=== PATIENT | female | born 1990 | race Caucasian/White ===

== ENCOUNTER 2021-05-11 17:20 | Outpatient (CLI) | payer OTHER, SELFPAY ==
[2021-05-11 13:26] LABS: Amphetamine Urine VISTA NEGATIVE (<1000 ng/mL); Barbiturate Urine VISTA NEGATIVE (< 200 ng/mL); Benzodiazepine Urine VISTA NEGATIVE (< 200 ng/mL); Cocaine Urine VISTA NEGATIVE (< 300 ng/mL); Ecstacy Urine VISTA NEGATIVE (< 500 ng/mL); Methadone Urine VISTA NEGATIVE (< 300 ng/mL); PCP Urine VISTA NEGATIVE (< 25 ng/mL); THC Urine VISTA NEGATIVE (< 50 ng/mL); Vista UDS pH Range 5
[2021-05-12 22:06] LABS: Chlamydia By Nucleic Acid AMP Negative (Negative)
[2021-05-13 08:23] LABS: Gonococcus By Nucleic Acid AMP Negative (Negative)
== END 2021-05-11 23:59 | disposition short-term general hospital (02) ==
LOC: LABSPEC 05-12 08:43
PROVIDERS: Visit Provider Obstetrics & Gynecology
DX: Z34.90 Encounter for supervision of normal pregnancy, unspecified, unspecified trimester (principal)
CPT/HCPCS: 80307; 87086; 87491; 87591

== ENCOUNTER 2021-05-25 11:37 | Outpatient (CLI) | payer OTHER, SELFPAY ==
[2021-05-25 12:15] LABS: Absolute Lymphocyte Count 3.11 X10^3/uL (0.83-4.51); Absolute Neutrophil Count 8.1 X10^3/uL (2.0-7.7); Basophil# 0.04 X10^3/uL; Basophil% 0.3 % (0-1); Eosinophil# 0.23 X10^3/uL; Eosinophils% 1.9 % (0-5); Hematocrit 41.8 % (37-47); Hemoglobin 14.5 g/dL (12.0-15.0); Lymphocyte # 3.11 X10^3/ul (0.83-4.51); Lymphocyte % 25.1 % (19-41); Mean Corp Hgb Conc 34.7 g/dL (32-36); Mean Corpuscular Volume 86.4 fL (81-99); Monocyte# 0.81 X10^3/uL; Monocyte% 6.5 % (0-10); NRBC Flagged by Analyzer 0 % (0-5); Neutrophil # 8.11 X10^3/uL (2.7-7.7); Neutrophil % 65.6 % (47-70); Platelet Count 213 K/mm3 (150-450); RBC Distribution Width CV 12.1 % (11.6-14.6); RBC Distribution Width SD 38.5 fl (35.1-43.9); Red Blood Count 4.84 M/mm3 (4.2-5.4); White Blood Count 12.4 K/mm3 (4.4-11.0)
[2021-05-25 12:58] LABS: ALB/GLOB Ratio 0.9 RATIO (0.9-2.4); AST(SGOT) 16 U/L (15-37); Alanine Aminotransfer ALT/SGPT 19 U/L (13-56); Albumin, Serum 3.7 g/dL (3.2-5.0); Alkaline Phosphatase 58 U/L (45-117); Anion Gap 8 (5-15); BUN 9 mg/dL (7-18); BUN/Creat Ratio 16.6 RATIO (10-20); Calcium,Total 9.2 mg/dL (8.5-10.1); Chloride 107 mmol/L (98-107); Creatinine, Serum 0.54 mg/dL (0.55-1.02); EST Glomerular Filtration Rate 139 mL/min (>60); Est Glom Filt Rate - Afr Amer 168 mL/min (>60); Glucose 77 mg/dL (74-106); Potassium 3.9 mmol/L (3.5-5.1); Protein, Total 7.7 g/dL (6.4-8.2); Sodium Level 137 mmol/L (136-145)
== END 2021-05-25 23:59 | disposition short-term general hospital (02) ==
LOC: PAVLAB 11:43
PROVIDERS: Referring Provider Obstetrics & Gynecology; Visit Provider Obstetrics & Gynecology
DX: O02.0 Blighted ovum and nonhydatidiform mole (principal); Z3A.00 Weeks of gestation of pregnancy not specified
CPT/HCPCS: 36415; 80053; 84702; 85025; 86850; 86900; 86901

== ENCOUNTER 2021-05-26 10:26 | Day surgery (SDC) | payer OTHER, SELFPAY ==
[2021-05-26] VITALS (9 sets, daily range): BP systolic 102–111; BP diastolic 64–75; PULSE 70–83; RESP 16–18; TEMP 36.7–37.2; O2SAT 99–100; BMI 26.9
--- NOTE | 2021-05-26 10:29 | EKG12_ITS ---
Test Reason : PREOP Blood Pressure : / mmHG Vent. Rate : 079 BPM Atrial Rate : 079 BPM P-R Int : 142 ms QRS Dur : 088 ms QT Int : 392 ms P-R-T Axes : 073 034 046 degrees QTc Int : 449 ms Normal sinus rhythm Normal ECG No previous ECGs available Confirmed by GARLAND LUDWIG, JOSEF ([id number]), mapping editor JOSIANE ARGUELLO ([id number]) on 05/31/2021 10:05:45 A M Referred By: Rylie Gongora Confirmed By:DANIEL HAQUE MD
[2021-05-26] MEDS: Doxycycline 100 MG CAPSULE PO (11:03)
[2021-05-26 11:09] LABS: Hematocrit 37.5 % (37-47); Hemoglobin 13.5 g/dL (12.0-15.0); Mean Corpuscular Hgb 31.3 pg (27.0-32.0); Mean Corpuscular Volume 86.8 fL (81-99); Mean Platelet Vol. 11.4 fl (6.2-12.0); Platelet Count 178 K/mm3 (150-450); RBC Distribution Width CV 12.3 % (11.6-14.6); RBC Distribution Width SD 39.2 fl (35.1-43.9); Red Blood Count 4.32 M/mm3 (4.2-5.4); White Blood Count 9.9 K/mm3 (4.4-11.0)
--- NOTE | 2021-05-26 11:30 | HP.PCM_ITS ---
History and Physical Date of Admission: 05/26/21 :1990 Provider:Dr. Coco Parry MDAge/Sex: 31/F [facility] Vital Signs 05/25/21 10:31 Height 5 ft 4 in Weight: 158 lb BMI 27.1 BP 120/82 H Intake Visit Reasons: 10 WK OB f/u bleeding Chief Complaint: est ob, follow up bleeding Quality Control Inspector Required: No Is patient in pain?: No Allergies No Known Allergies Allergy (Unverified 05/25/21 12:28) Medications albuterol sulfate 90 mcg/actuation aerosol inhaler 2 puff INHALATION Q6H PRN 04/27/21 [History Confirmed 05/25/21] multivitamin no.47-iron fum 27 mg-folate no.1 1 mg-dha 300 mg capsule 1 cap PO DAILY 04/27/21 [History Confirmed 05/25/21] Last Menstral Period: 03/12/21 Zika: Zika virus screening: Negative : No PFSH PFSH Medical History (Updated 05/25/21 @ 15:[address] Coco Parry MD) Alcohol use Anxiety Asthma Back pain Chest pain Easy bruising Low iron Non-smoker Restless legs Surgical History (Updated 05/25/21 @ 12:34 by Ilene Francis) H/O section Hx of appendectomy Hx of breast augmentation Hx of oral surgery Family History Mother , age 57 Cancer lung Grandmother , age 45 Cancer Aunt , age 26 Cancer Grandfather Cancer skin Grandmother Breast cancer Grandfather Myocardial infarction Father Hypertension Aunt Breast cancer Aunt Cancer eye Aunt Cancer bone Social History household members: family housing: house number of children: 3 current occupation: [employer] pets and animals: Yes Smoking Status: Never smoker second hand exposure: No alcohol intake: current substance use type: does not use seatbelt use: always do you feel safe at home: Yes additional social history: - Candido (sales) Pregancy History 3 Elective abortions Hx Para 2 Spontaneous abortions Hx # Term Pregnancies 1 Ectopic pregnancies Hx # Pregnancies 1 Multiple births 1 # of living children 3 Past Pregnancies Del. Date Name GA/Weeks Outcome Route Bth Weight Infant Gen Labor Lgth Anesthesia Del Locatn Provider FOB 11/25/17 Primitivo 39 live - full term 7lbs 3oz Female 3 hours epidural [place] Candido 10/13/19 David 29 live - 3#2oz; 2#15oz Female 2 days general [facility] Delivery Date: 11/25/17 internal laceration repair; epistomy Azucena Marshall Delivery Date: 10/13/19 identical twins; PPROM; ? placental abruption; ? PP hemorrhage Azucena Marshall HPI 10 WK OB f/u bleeding Details: CELIA MAYS is a 31 year old who presents for routine OB visit. Preivous US had shown small subchorionic hematoma with viable iup. She denies any bleeding or cramping. She is having les nausea and fatigue now, feeling better. on ultrasound there is no FHT present and CRL measuring 1 week behind, and abnormal hydropic villi appearance of placental tissue suspicous for partial molar . OB Visit ROLANDO Calculator Estimated Delivery Date Method Current WG Current Estimate 12/17/21 LMP (Certain) 10w 4d Expected Delivery Route/Plan TOLAC Specific Issue/Plans Covid status: pos in past counseled regarding risk of covid in vs vaccination and declined vaccination Flu vaccine: Tdap vaccine: [] Rhogam: [] LARC form signed: [] Problem list reviewed and updated with the most current plan of care details and appropriate orders placed. Relevant counseling for the gestational age provided. Continue routine care and follow up unless otherwise noted in visit notes/problem list details Initial Weight: Not Recorded Date EGA Weight BP Urine Prot Glucose FHR FuHt Pres Dilation Effaced St Visit Note 05/11/21 8w 4d 156 lb 122/80 160 SM- CRL 8w1d cons with LMP 05/25/21 10w 4d 158 lb 120/82 Negative Negative ACOG First Trimester First Trimester: Desire for , Alcohol, Tobacco Cessation, Illicit/Recreational Drug/Substance Use, Intimate Partner Violence, Barriers to care, Unstable Housing, Communication Barriers, Environmental/Work Hazards, Anticipated Course of Care, Toxoplasmosis Precations, Use of Any medications, Sexual activity, Exercise, Dental Care, Sauna/Hot tub use, Seat Belt use, Childbirth classes/Hospital facilities, , Travel, Indications for Ultrasound and Screening for Aneuploidy Diagnostics Diagnostics Diagnostics: Blood Type A POSITIVE Antibody Screen NEGATIVE Hgb 14.5 g/dL (12.0-15.0) Hct 41.8 % (37-47) Chlamydia DNA (NINA) Negative (Negative) N.gonorrhoeae DNA (NINA) Negative (Negative) Details: HIV: Urine Culture: Sequential Screen: NIPT Screen: ROS Const Reports as per HPI and Denies fever(s) ENT Reports system reviewed and no additional complaints, except as documented Card Reports system reviewed and no additional complaints, except as documented Resp Reports system reviewed and no additional complaints, except as documented GI Reports as per HPI Reports as per HPI and Reports abnormal vaginal bleeding Musc Reports system reviewed and no additional complaints, except as documented Skin/Breast Reports system reviewed and no additional complaints, except as documented Neuro Yes system reviewed and no additional complaints, except as documented Endo Reports system reviewed and no additional complaints, except as documented Exam Const General: healthy appearing, comfortable and no acute distress HENMT Head: normal to inspection and normocephalic Neck Neck: no lymphadenopathy noted Thyroid: thyroid normal Chest Chest palpation & inspection: normal inspection of the chest Resp Effort & Inspection: normal respiratory effort Cardio Rate: regular rate Rhythm: regular rhythm GI Inspection: normal to inspection Palpation: soft and nontender External Female Exam: normal external appearance Speculum Exam - Vagina: normal appearance of the vagina Bimanual Exam- Vagina & Uterus: uterine shape normal and non-tender Skin General: no rashes or lesions noted Neuro General: no focal motor deficits Extrem General: normal to inspection and no pedal edema Psych Appearance: grossly normal Results POC Urinalysis 2 Dip (Clinic) Office Urine Glucose Negative Last Edit by Mellissa Montiel on 05/25/21 10:35 Office Urine Protein Negative Last Edit by Mellissa Montiel on 05/25/21 10:35 Coding Level of Care Code Off vis,est,level 4 Diagnoses Family history of cancer Z80.9 Z3A.10 Weeks of gestation: 10 weeks Supervision of high risk , antepartum O09.90 H/O emergency section Z98.891 PTSD (post-traumatic stress disorder) F43.10 H/O delivery, currently O09.899 Depression F32.A Asthma J45.909 Anxiety F41.9 Partial molar O08.89 Assessment and Plan Assessment and Plan (1) Family history of cancer: Status: Acute Comment: discussed empower testing. Plan - Dr. Coco Parry MD: recommend checking labs and proceeding with D and C. will need weekly hcgs until negative. (2) : Status: Acute Qualifiers: Weeks of gestation: 10 weeks Qualified Code(s): Z3A.10 - 10 weeks gestation of Comment: desires genetic (3) Supervision of high risk , antepartum: Status: Acute Comment: ROLANDO: 12/17/21 PC: Faisal Langford Kendell Spouse: Candido (4) H/O emergency section: Status: Acute Comment: twin delivery at 29 weeks d/t PPROM; PT WANTS TO (5) PTSD (post-traumatic stress disorder): Status: Acute Comment: from c/s- twin delivery; mom from Lung CA 8 months ago (6) H/O delivery, currently : Status: Acute Comment: PPROM at 29 weeks with twins; ? placental abruption (7) Depression: Status: Acute Comment: mom from lung cancer age 57 (8) Asthma: Status: Acute Comment: uses albuterol inhaler- needs to est care with PMW (9) Anxiety: Status: Acute (10) Partial molar : Status: Acute Comment: suspect by US. hydropic villi. hcg 150,000. measuring 9weeks no FHT. follow weekly hcgs until negative then repeat in 1 month prior to TTC. Plan - Dr. Coco Parry MD: Problem list updated and treatment plans were reviewed with the patient and relevant educational handouts given. See problem list details for specific plan information. UPDATE- I have seen the patient and performed any clinically relevant updates to the history and physical exam. Rylie Gongora DO
--- NOTE | 2021-05-26 11:32 | PCM.DC ---
Discharge Instructions Diet Discharge Diet: No restrictions Activity Discharge Activity: Return to Normal Activity, May Shower and May Take a Tub Bath (after 1 week) May resume sexual activity in: 4 weeks Weight Bearing Status: Weight bearing as tolerated Lifting Restrictions: none Dressing / Incision Call your doctor if you observe: Fever of 101 or Higher, Using more than 1 pad per hour, Shortness of breath and Uncontrolled pain Follow Up Care Please Follow Up With: Rylie Gongora DO When: Call [phone] to schedule appointment. Test Results: Test results from this visit will be discussed in further detail at your follow-up appointment, if applicable. Discharge Plan Admission Primary Reason for Your Visit: dilation and curettage Attending Provider: Rylie Gongora Primary Care Provider: Care Physician,Merlyn Primary Discharge Orders/Prescriptions Prescriptions: New oxycodone-acetaminophen [Percocet] 5-325 mg tablet 1 tab PO Q4H PRN (Reason: pain) 3 Days Qty: 18 RF: 0 ibuprofen 800 mg tablet 800 mg PO Q8H PRN (Reason: pain) 7 Days Qty: 30 RF: 0 Continued albuterol sulfate 90 mcg/actuation HFA aerosol inhaler 2 puff inhalation Q6H PRN (Reason: SOB) RF: 0 PNV-DHA 27 mg iron-1 mg -300 mg capsule 1 cap PO DAILY RF: 0 Referrals / Follow Up: Care Physician,No Primary [Primary Care Provider] - Disposition Disposition (needs filled in before D/C Order can be placed): Home, Self Care
--- NOTE | 2021-05-26 12:30 | POC_PTH ---
PATIENT: CELIA MAYS LOC: [facility] U#:[id number] AGE/SX: 31/F ROOM: RE05/26/[address]: Dr. Rylie Gongora DO : 1990 BED: DIS: 05/26/2021 SPEC #: [id number] RECD: 05/26/21 13:49 STATUS: AN MOFFETT #: [id number] MEHRDAD: 05/26/21 12:[address]: Rylie Gongora DEPT: SURGICAL PATHOLOGY RECD BY: Sherri Matson ENTERED: 05/27/21 07:04 SP TYPE: PROD CONC OTHR DR: No Primary Care Phys Tissues: Product of conception, NOS Procedures: Surgery Specimen Level IV HEADER OPERATION: Suction dilation and curettage PRE-OP DIAGNOSIS: Partial molar TISSUE SUBMITTED: Products of conception MICROSCOPIC DIAGNOSIS Endometrium, curettage: Chorionic villi, decidualized stroma and trophoblastic cells consistent with products of conception. See Comment. AM:zoran 05/28/2021 COMMENT Approximately 20% of the villi show hydropic change and may represent partial mole. Clinical correlation and/or additional studies are recommended as deemed necessary. Case has been reviewed in consultation with Dr. Schmitz who concurs with the above diagnosis. IDC:NATALIIA MICROSCOPIC DESCRIPTION Slides are reviewed. GROSS DESCRIPTION Received in fixative is one container labeled with the patient's name and designated products of conception. The specimen consists of multiple fragments of hemorrhagic soft tissue that in aggregate measure 8 x 8 x 3 cm. tissue is not identified. Transportation Maintenance Operator tissue is submitted in six cassettes. / NATALIIA:zoran 05/27/2021 TC:5 CPT: 29076
[2021-05-26] MEDS: Lactated Ringers 1,000 ML 15 ML IV ×2 (12:49→13:57)
[2021-05-26] MEDS: Lidocaine 1% (20 ml mdv) 20 ML Vial (13:11)
[2021-05-26] MEDS: Methylergonovine 0.2 MG/ML Ampul IM (13:21)
--- NOTE | 2021-05-26 13:29 | OP.PCM_ITS ---
Problems Associated Problem List Diagnoses (1) Partial molar : Operative Report Date of Procedure: 05/26/21 Preoperative diagnosis: partial molar , spontaneous postoperative diagnosis: partial molar , spontaneous surgeon: Dr. Rylie Gongora DO Anesthesia: mac/local Complications: none EBL: 100cc urine output: 200cc fluids given: 800cc crystalloid Patient was taken to the operating room and placed under MAC local anesthesia. She was prepped and draped in the normal sterile fashion the dorsal lithotomy position. Bladder was drained of clear urine and anterior lip of the cervix was grasped and the uterus sounded 14 cm. The Cervix was progressively dilated to allow passage of a 10 mm suction curette. Progressive passes were made removing the retained products of conception without complication. Sharp curettage confi rmed complete removal of the retained products. All instruments were removed from the vagina and excellent hemostasis was noted and the patient was taken to recovery in stable condition.
== END 2021-05-26 23:59 | disposition home or self-care (01) ==
LOC: SDC 10:27 → AC 10:28
PROVIDERS: Referring Provider Obstetrics & Gynecology; Visit Provider Obstetrics & Gynecology
PROC: (CPT 59820; principal; 2021-05-26 12:15)
DX: O02.0 Blighted ovum and nonhydatidiform mole (principal); O03.9 Complete or unspecified spontaneous abortion without complication; J45.909 Unspecified asthma, uncomplicated
CPT/HCPCS: 59820; 01965; 85027; 86850; 86900; 86901; 87426; 88305; 93005; J7120; J2405

== ENCOUNTER 2021-06-02 11:23 | Outpatient (CLI) | payer OTHER, SELFPAY ==
[2021-06-02 12:46] LABS: hCG Titer Quant., Serum 2862 mIU/mL (1-3)
== END 2021-06-02 23:59 | disposition short-term general hospital (02) ==
PROVIDERS: Referring Provider Obstetrics & Gynecology; Visit Provider Obstetrics & Gynecology
DX: O08.89 Other complications following an ectopic and molar pregnancy (principal); Z3A.00 Weeks of gestation of pregnancy not specified
CPT/HCPCS: 36415; 84702

== ENCOUNTER 2021-06-09 10:18 | Outpatient (CLI) | payer OTHER, SELFPAY ==
[2021-06-09 11:15] LABS: hCG Titer Quant., Serum 311 mIU/mL (1-3)
== END 2021-06-09 23:59 | disposition home or self-care (01) ==
LOC: PAVLAB 10:18
PROVIDERS: Referring Provider Obstetrics & Gynecology; Visit Provider Obstetrics & Gynecology
DX: O08.89 Other complications following an ectopic and molar pregnancy (principal)
CPT/HCPCS: 36415; 84702

== ENCOUNTER 2021-06-16 08:45 | Outpatient (CLI) | payer OTHER, SELFPAY ==
[2021-06-16 09:30] LABS: hCG Titer Quant., Serum 88 mIU/mL (1-3)
== END 2021-06-16 23:59 | disposition home or self-care (01) ==
PROVIDERS: Referring Provider Obstetrics & Gynecology; Visit Provider Obstetrics & Gynecology
DX: O08.89 Other complications following an ectopic and molar pregnancy (principal)
CPT/HCPCS: 36415; 84702

== ENCOUNTER 2021-06-25 10:49 | Outpatient (CLI) | payer OTHER, SELFPAY ==
[2021-06-25 11:24] LABS: hCG Titer Quant., Serum 35 mIU/mL (1-3)
== END 2021-06-25 23:59 | disposition home or self-care (01) ==
LOC: PAVLAB 10:49
PROVIDERS: Referring Provider Obstetrics & Gynecology; Visit Provider Obstetrics & Gynecology
DX: O08.89 Other complications following an ectopic and molar pregnancy (principal)
CPT/HCPCS: 36415; 84702

== ENCOUNTER 2021-07-12 12:29 | Outpatient (CLI) | payer OTHER, SELFPAY ==
[2021-07-12 14:06] LABS: hCG Titer Quant., Serum 11 mIU/mL (1-3)
== END 2021-07-12 23:59 | disposition home or self-care (01) ==
LOC: PAVLAB 12:30
PROVIDERS: Referring Provider Obstetrics & Gynecology; Visit Provider Obstetrics & Gynecology
DX: O08.89 Other complications following an ectopic and molar pregnancy (principal)
CPT/HCPCS: 36415; 84702

== ENCOUNTER → 2022-12-20 | Outpatient (CLI) | payer OTHER, SELFPAY ==
[2022-12-20 10:18] LABS: hCG Titer Quant., Serum 35 mIU/mL (1-3)
== END | disposition home or self-care (01) ==
PROVIDERS: PCP Family Medicine; Referring Provider Obstetrics & Gynecology; Visit Provider Obstetrics & Gynecology
DX: O36.80X0 Pregnancy with inconclusive fetal viability, not applicable or unspecified (principal); Z3A.00 Weeks of gestation of pregnancy not specified
CPT/HCPCS: 36415; 84702

== ENCOUNTER → 2022-12-22 | Outpatient (CLI) | payer OTHER, SELFPAY ==
[2022-12-22 10:12] LABS: hCG Titer Quant., Serum 102 mIU/mL (1-3)
== END | disposition home or self-care (01) ==
PROVIDERS: PCP Family Medicine; Referring Provider Obstetrics & Gynecology; Visit Provider Obstetrics & Gynecology
DX: O36.80X0 Pregnancy with inconclusive fetal viability, not applicable or unspecified (principal); Z3A.00 Weeks of gestation of pregnancy not specified
CPT/HCPCS: 36415; 84702

== ENCOUNTER → 2023-01-23 | Outpatient (CLI) | payer OTHER, SELFPAY ==
[2023-01-25 21:07] LABS: Chlamydia By Nucleic Acid AMP Negative (Negative); Gonococcus By Nucleic Acid AMP Negative (Negative)
[2023-01-26 16:10] LABS: HPV APTIMA, High Risk Negative (Negative)
== END | disposition home or self-care (01) ==
LOC: LABSPEC 16:44
PROVIDERS: PCP Family Medicine; Referring Provider Obstetrics & Gynecology; Visit Provider Obstetrics & Gynecology
DX: O09.90 Supervision of high risk pregnancy, unspecified, unspecified trimester (principal); Z3A.00 Weeks of gestation of pregnancy not specified
CPT/HCPCS: 87086; 87491; 87591; 87624; 88175; G0145

== ENCOUNTER 2023-01-25 19:26 | Emergency (ER) | payer OTHER, SELFPAY ==
[2023-01-25 19:27] VITALS: BP 111/80; PULSE 83; RESP 16; TEMP 36.6; O2SAT 100; BMI 26.3
--- NOTE | 2023-01-25 20:39 | US_ITS ---
We are attempting to reach an attending provider to discuss findings. An addendum with communication details will be sent when the communication is complete. EXAM: US , TRANSVAGINAL CLINICAL INDICATION: Vaginal bleeding with clots TECHNIQUE: Real-time transvaginal obstetrical ultrasound of the maternal pelvis and a first trimester with image documentation. Transvaginal imaging was used for better evaluation of the fetus and adnexa. COMPARISON: No relevant prior studies available. FINDINGS: GESTATION: No gestational sac, yolk sac, or pole is identified. PLACENTA/AMNIOTIC FLUID: Cannot be adequately evaluated due to the early gestational age. UTERUS/CERVIX: The endometrium is heterogenous and thickened. Increased vascularity is identified at the fundal aspect of the endometrium. No myometrial mass. The uterus measures 9.8 x 4.8 x 6.5 cm. The endometrial stripe measures 2.9 cm in thickness. OVARIES: There is a corpus luteum cyst of the left ovary. No mass. The right ovary measures 2.7 x 1.3 x 1.8 cm. The left ovary measures 3.2 x 1.8 x 2.1 cm. FREE FLUID: No free fluid is identified. US/Transvaginal w/Preg US IMPRESSION: The endometrium is heterogenous and thickened. Increased vascularity is identified at the fundal aspect of the endometrium. Cannot exclude retained products of conception. No IUP is identified. No discrete evidence of ectopic . Electronically Signed: Irvin Hilliard DO at 21:40 EDT ,
--- NOTE | 2023-01-25 20:44 | ED.VIS.FEGU ---
HPI HPI - Female History of Present Illness Chief Complaint: Vag Bld, Preg Pain Pain: Positive for Pelvic Pain Onset: Days (5) Context: Gradual Onset Timing: Waxes and wanes Quality: Positive for Cramping Location: Suprapubic Bleeding Issue: Positive for Vaginal bleeding, Passing clots and Passing tissue Onset: Today Current Severity: Mild Maximum Severity: Heavy Associated Symptoms Associated Symptoms: Negative for Dysuria, Frequency or Hematuria Test: Positive Narrative Narrative: Patient presents with vaginal bleeding and cramping. Patient states she is approximately 8 weeks . Patient states she had an ultrasound 2 days ago which showed demise. Patient states that tonight she started having severe cramping and passing clots. Patient states she passed a clot as large as a tennis ball. Patient states there may have been some small tissue in there. Patient states she is still having heavy vaginal bleeding. Patient denies any urinary complaints. Patient admits to subjective chills but denies any fevers. PFSH PFSH Medical History Alcohol use Anxiety Asthma Back pain Chest pain Easy bruising Low iron Non-smoker Restless legs Home Medications NK 01/25/23 [History Last Taken Unknown] Allergy/AdvReac Type Severity Reaction Status Date / Time No Known Allergies Allergy Verified 01/25/23 19:30 Family History Mother , age 57 Cancer lung Grandmother , age 45 Cancer Aunt , age 26 Cancer Grandfather Cancer skin Grandmother Breast cancer Grandfather Myocardial infarction Father Hypertension Aunt Breast cancer Aunt Cancer eye Aunt Cancer bone Surgical History H/O section Hx of appendectomy Hx of breast augmentation Hx of oral surgery S/P dilation and curettage (~05/26/21) Social History household members: family housing: house number of children: 3 current occupation: [employer] pets and animals: Yes Smoking Status: Never smoker second hand exposure: No alcohol intake: current substance use type: does not use seatbelt use: always do you feel safe at home: Yes additional social history: - Candido (sales) ROS ROS ED Constitutional Constitutional ED: Reports chills and subjective; Denies fever(s) Eyes Eyes: Denies blurry vision or change in vision ENT ENT ED: Denies rhinorrhea or sore throat Cardiovascular Cardiovascular: Denies chest pain or palpitations Respiratory/Chest Respiratory/Chest: Denies cough or dyspnea Gastrointestinal Gastrointestinal: Reports abdominal pain and nausea; Denies vomiting Genitourinary Genitourinary ED: Denies dysuria or hematuria Musculoskeletal Musculoskeletal: Denies back pain or neck pain Integumentary Denies abscess or rash Neurologic Neurologic: Denies headache(s) or weakness Allergic/Immunologic Allergic/Immunologic ED: Denies mouth swelling or urticaria EXAM Physical Exam Const Vital Signs: 01/25/23 19:27 Temperature 97.8 F Temperature Source Temporal Pulse Rate 83 Respiratory Rate 16 Blood Pressure 111/80 Blood Pressure Mean 90 Pulse Ox 100 Oxygen Delivery Method Room Air Positive well nourished and well developed General Appearance ED: well developed and NAD Neck supple and no JVD Resp normal respiratory effort and clear to auscultation bilaterally Cardio regular rate and regular rhythm GI soft to palpation Auscultation: normoactive bowel sounds Palpation: tender suprapubic; Negative for guarding Neuro oriented x3, CN's II-XII intact bilaterally and no sensory deficits noted Sensorium / Orientation: alert Motor Exam: strength 5/5 throughout Psych mental status grossly normal MDM MDM MDM Narrative Medical decision making narrative: Differential diagnosis includes incomplete spontaneous , missed spontaneous , and retained products of conception. Pelvic ultrasound will be obtained to assess for incomplete versus missed spontaneous and retained products of conception. CBC will be obtained to assess for leukocytosis and anemia. Basic metabolic profile will be obtained to assess for electrolyte abnormality and renal function. PT with INR and PTT will be obtained to assess for coagulopathy. Quantitative hCG will be obtained to assess for status. Lab Data Attestation: I reviewed the patient's lab results. Lab results narrative: CBC was reviewed. There is a mild leukocytosis at 13.1. The remainder is within normal limits. Basic metabolic profile was reviewed and was within normal limits. PT with INR and PTT were reviewed and were normal. Quantitative hCG was 80528. Labs: Laboratory Results - last 24 hr 01/25/23 20:10 WBC 13.1 H RBC 4.67 Hgb 14.1 Hct 41.3 MCV 88.4 MCH 30.2 MCHC 34.1 RDW Std Deviation 40.8 RDW Coeff of Oracio 12.5 Plt Count 223 MPV 11.9 Immature Gran % (Auto) 0.500 Neut % (Auto) 62.7 Lymph % (Auto) 29.5 Taliaferro % (Auto) 5.5 Eos % (Auto) 1.4 Baso % (Auto) 0.4 Absolute Neuts (auto) 8.2 H Absolute Lymphs (auto) 3.85 Nucleated RBC % 0 PT 13.4 INR 1.0 APTT 28.0 Sodium 138 Potassium 3.6 Chloride 106 Carbon Dioxide 25.0 Anion Gap 7 BUN 10 Creatinine 0.80 Estim Creat Clear Calc 87.18 Est GFR (MDRD) Af Amer 106 Est GFR (MDRD) Non-Af 87 BUN/Creatinine Ratio 12.4 Glucose 89 Calcium 8.7 HCG, Quant 82126 H Radiography Diagnostic Testing: Clinical Impression(s) from Imaging Studies Obstetrics Ultrasound 01/25/23 20:39 IMPRESSION: The endometrium is heterogenous and thickened. Increased vascularity is identified at the fundal aspect of the endometrium. Cannot exclude retained products of conception. No IUP is identified. No discrete evidence of ectopic . Electronically Signed: Irvin Hilliard DO at 21:40 EDT , ADDENDUM: 01/25/23 2158 IMPRESSION: The endometrium is heterogenous and thickened. Increased vascularity is identified at the fundal aspect of the endometrium. Cannot exclude retained products of conception. No IUP is identified. No discrete evidence of ectopic . N.B. : The above Results were Read Back by Irvin Hilliard DO to Carson Millan MD, and understanding confirmed on 01/25/2023 21:51:06 (ET). Electronically Signed: Irvin Hilliard DO at 21:40 EDT , Pelvic ultrasound was obtained. There is thickened endometrium measuring 2.9 cm. There is increased vascularity at the fundal aspect of the endometrium. Cannot rule out retained products of conception. There is no intrauterine noted. There is no evidence of ectopic . This was interpreted by the radiologist was also independently reviewed by myself. Management Discussion w/another healthcare provider: Enrichment Assistant (Dr. Garcia) Treatment and Re-Evaluation Narrative: Patient is feeling better on reevaluation. Patient was advised of her findings. Case was discussed with Dr. Garcia. She recommended giving the patient 400 mcg of Cytotec. The patient is agreeable with this. Patient is scheduled to see Dr. Garcia tomorrow afternoon. Patient was instructed to keep this appointment. Patient was instructed return if worse in any way. Patient understood and was agreeable with the plan. All questions were answered. Discharge Plan Triage Chief Complaint: Vag Bld, Preg ED Provider: Carson Millan Dx/Rx/DC Orders Clinical Impression: Spontaneous miscarriage Instructions: ED Miscarriage Spontaneous Prescriptions: No Action NK Primary Care Provider: Arabella Westfall Referrals: Rylie Gongora DO [Med Staff - Active Staff] - Keep Vijay appointment Arabella Westfall DO [Primary Care Provider] - Disposition Disposition: Home, Self Care
[2023-01-25 21:03] LABS: Absolute Lymphocyte Count 3.85 X10^3/uL (0.83-4.51); Absolute Neutrophil Count 8.2 X10^3/uL (2.0-7.7); Basophil# 0.05 X10^3/uL; Basophil% 0.4 % (0-1); Eosinophil# 0.18 X10^3/uL; Eosinophils% 1.4 % (0-5); Hematocrit 41.3 % (37-47); Hemoglobin 14.1 g/dL (12.0-15.0); Lymphocyte # 3.85 X10^3/ul (0.83-4.51); Lymphocyte % 29.5 % (19-41); Mean Corp Hgb Conc 34.1 g/dL (32-36); Mean Corpuscular Hgb 30.2 pg (27.0-32.0); Mean Corpuscular Volume 88.4 fL (81-99); Mean Platelet Vol. 11.9 fl (6.2-12.0); Monocyte# 0.72 X10^3/uL; Monocyte% 5.5 % (0-10); NRBC Flagged by Analyzer 0 % (0-5); Neutrophil # 8.19 X10^3/uL (2.7-7.7); Neutrophil % 62.7 % (47-70); Platelet Count 223 K/mm3 (150-450); RBC Distribution Width CV 12.5 % (11.6-14.6); RBC Distribution Width SD 40.8 fl (35.1-43.9); Red Blood Count 4.67 M/mm3 (4.2-5.4); White Blood Count 13.1 K/mm3 (4.4-11.0)
[2023-01-25 21:09] LABS: Prothrombin Time (Protime)PT. 13.4 SECONDS (11.7-14.9)
[2023-01-25 21:21] LABS: Anion Gap 7 (5-15); BUN 10 mg/dL (7-18); BUN/Creat Ratio 12.4 RATIO (10-20); Calcium,Total 8.7 mg/dL (8.5-10.1); Chloride 106 mmol/L (98-107); EST Glomerular Filtration Rate 87 mL/min (>60); Est Glom Filt Rate - Afr Amer 106 mL/min (>60); Estimated Creatinine Clearance 87.18 ml/min; Glucose 89 mg/dL (74-106); Potassium 3.6 mmol/L (3.5-5.1); Sodium Level 138 mmol/L (136-145)
[2023-01-25 21:40] LABS: hCG Titer Quant., Serum 12128 mIU/mL (1-3)
[2023-01-25] MEDS: miSOPROStol 200 MCG Tablet 400 MCG PO (22:33)
[2023-01-25 22:37] VITALS: PULSE 77; RESP 18; O2SAT 99
== END 2023-01-25 22:38 | disposition home or self-care (01) ==
PROVIDERS: Emergency Provider Emergency Medicine; PCP Family Medicine; Visit Provider Emergency Medicine
DX: O03.9 Complete or unspecified spontaneous abortion without complication (principal)
CPT/HCPCS: 76817; 80048; 84702; 85025; 85610; 85730; 99283; A4216

== ENCOUNTER → 2023-02-06 | Outpatient (CLI) | payer OTHER, SELFPAY ==
[2023-02-06 10:17] LABS: Absolute Neutrophil Count 3.1 X10^3/uL (2.0-7.7); Basophil# 0.03 X10^3/uL; Basophil% 0.5 % (0-1); Eosinophil# 0.16 X10^3/uL; Eosinophils% 2.5 % (0-5); Hematocrit 39.2 % (37-47); Hemoglobin 12.8 g/dL (12.0-15.0); Lymphocyte % 41.1 % (19-41); Mean Corp Hgb Conc 32.7 g/dL (32-36); Mean Corpuscular Hgb 29.6 pg (27.0-32.0); Mean Corpuscular Volume 90.7 fL (81-99); Mean Platelet Vol. 11.8 fl (6.2-12.0); Monocyte# 0.37 X10^3/uL; Monocyte% 5.9 % (0-10); NRBC Flagged by Analyzer 0 % (0-5); Neutrophil # 3.13 X10^3/uL (2.7-7.7); Neutrophil % 49.5 % (47-70); Platelet Count 218 K/mm3 (150-450); RBC Distribution Width CV 12.4 % (11.6-14.6); RBC Distribution Width SD 41.1 fl (35.1-43.9); Red Blood Count 4.32 M/mm3 (4.2-5.4); White Blood Count 6.3 K/mm3 (4.4-11.0)
[2023-02-06 11:31] LABS: hCG Titer Quant., Serum 115 mIU/mL (1-3)
== END | disposition home or self-care (01) ==
PROVIDERS: Obstetrics & Gynecology; PCP Family Medicine; Referring Provider Obstetrics & Gynecology; Visit Provider Obstetrics & Gynecology
DX: O03.9 Complete or unspecified spontaneous abortion without complication (principal)
CPT/HCPCS: 36415; 84702; 85025

== ENCOUNTER → 2023-05-08 | Outpatient (CLI) | payer OTHER, SELFPAY ==
[2023-05-08 14:13] LABS: Hemoglobin A1c 4.6 % (3.8-5.6)
[2023-05-08 14:25] LABS: Thyroid Stim Hormone (TSH) 0.95 uIU/mL (0.358-3.74)
[2023-05-13 15:31] LABS: Anti-Cardiolipin Ab, IgA, Qn < 9 APL U/mL (0-11); Anti-Cardiolipin Ab, IgG, Qn < 9 GPL U/mL (0-14); Anti-Cardiolipin Ab, IgM, Qn < 9 MPL U/mL (0-12); Beta-2-Glycoprotein I IgA <9 (0-25); Beta-2-Glycoprotein I IgG <9 (0-20); Beta-2-Glycoprotein I IgM <9 (0-32); Dilute Prothrombin Time (dPT) 47.8 sec (0.0-47.6); Dilute Russell Viper Venom 41.5 sec (0.0-47.0); Hexagonal Phase Phospholipid 2 8 sec (0-11); Interpretation Comment: (.); PTT-LA 80.6 sec (0.0-43.5); PTT-LA Mix 48.6 sec (0.0-40.5); Thrombin Time 21.1 sec (0.0-23.0); dPT Confirm Ratio 0.73 Ratio (0.00-1.34)
== END | disposition home or self-care (01) ==
LOC: PAVLAB 13:21
PROVIDERS: PCP Family Medicine; Referring Provider Obstetrics & Gynecology; Visit Provider Obstetrics & Gynecology
DX: O03.9 Complete or unspecified spontaneous abortion without complication (principal)
CPT/HCPCS: 36415; 83036; 84443; 86146; 86147

== ENCOUNTER → 2023-05-17 | Outpatient (CLI) | payer OTHER, SELFPAY ==
--- OUTSIDE RECORDS SUMMARY | 2023-05-17 13:29 | XMS RPT_ITS | CCD ---
Author Name Unknown Address [address] [place] [address] Organization [facility] Care Team Providers Care Manager Of Quality Name Role Phone Renea Westfall DO Primary Care Provider RENEA WESTFALL Primary Care Unavailable RENEA WESTFALL Primary Care Unavailable RENEA WESTFALL Primary Care Unavailable Medications Current Medications Medication Drug Class(es) Dates Sig (Normalized) Sig (Original) amoxicillin 875 mg / clavulanate 125 mg oral tablet (1 source) Penicillin-class Antibacterial Start: 03-08-2023 End: 03-18-2023 take 1 tablet by mouth twice daily amoxicillin-clavula june potassium (AUGMENTIN) 875-125 mg per tablet Indications: Streptococcal pharyngitis Take 1 tablet by mouth two times a day for 10 days. 20 tablet 0 03/08/2023 03/18/2023 Active Completed/Discontinued Medications Medication Drug Class(es) Dates Sig (Normalized) Sig (Original) acetaminophen 500 mg oral tablet (1 source) Start: 12-15-2022 End: 12-15-2022 acetaminophen 1,000 mg tab(s) (TYLENOL) Problems Problem Classification Problem Date Documented Da te Episodic/Chronic Other upper respiratory infections (3 sources) Upper respiratory infection; Translations: [Acute upper respiratory infection, unspecified] 12-15-2022 Episodic Viral infection (1 source) Viral disease; Translations: [Viral infection, unspecified] 12-15-2022 Episodic Results Test Name Value Interpretation Reference Range Facil ity Vital Signs Date Time Vital Sign Value Performing Clinician Facility 03-08-2023 17:04-0500 Body temperature 100.51 [degF] Stevan Castaneda MD Work Phone: [facility] 03-08-2023 17:04-0500 Body weight 70.31 kg Stevan Castaneda MD Work Phone: [facility] 03-08-2023 17:04-0500 Diastolic blood pressure 80 mm[Hg] Stevan Castaneda MD Work Phone: [facility] 03-08-2023 17:04-0500 Heart rate 116 /min Stevan Castaneda MD Work Phone: [facility] 03-08-2023 17:04-0500 Respiratory rate 18 /min Stevan Castaneda MD Work Phone: [facility] 03-08-2023 17:04-0500 SaO2% (BldA) [Mass fraction] 98 % Stevan Castaneda MD Work Phone: [facility] 03-08-2023 17:04-0500 Systolic blood pressure 122 mm[Hg] Stevan Castaneda MD Work Phone: [facility] 12-15-2022 09:12-0400 Body temperature 99.5 [degF] Kaylynn Manning FORMAT PROOFREADER.SOLAR PANEL INSTALLER Work Phone: [facility] 12-15-2022 09:12-0400 Body weight 64.68 kg Kaylynn Manning FORMAT PROOFREADER.SOLAR PANEL INSTALLER Work Phone: [facility] 12-15-2022 09:12-0400 Diastolic blood pressure 78 mm[Hg] Kaylynn Manning FORMAT PROOFREADER.SOLAR PANEL INSTALLER Work Phone: [facility] 12-15-2022 09:12-0400 Heart rate 121 /min Kaylynn Manning FORMAT PROOFREADER.SOLAR PANEL INSTALLER Work Phone: [facility] 12-15-2022 09:12-0400 Respiratory rate 24 /min Kaylynn Manning FORMAT PROOFREADER.SOLAR PANEL INSTALLER Work Phone: [facility] 12-15-2022 09:12-0400 SaO2% (BldA) [Mass fraction] 99 % Kaylynn Manning FORMAT PROOFREADER.SOLAR PANEL INSTALLER Work Phone: [facility] 12-15-2022 09:12-0400 Systolic blood pressure 110 mm[Hg] Kaylynn Manning FORMAT PROOFREADER.SOLAR PANEL INSTALLER Work Phone: [facility] Encounters Encounter Date Encounter Type Care Provider Facility Start: 04-20-2023 End: 04-20-2023 ambulatory RENEA WESTFALL Facility:[facility] Start: 03-08-2023 End: 03-08-2023 ambulatory RENEA WESTFALL Facility:[facility] Start: 03-08-2023 End: 03-08-2023 Patient encounter procedure Stevan Castaneda MD Work Phone: [facility] Procedures Date Procedure Procedure Detail Performing Clinician Start: 03-08-2023 STREP A MOLECULAR (POC) Brooklynn Rapp PA-C Work Phone: Start: 12-15-2022 STREP A MOLECULAR (POC) Nicolas Carrillo APRN.SOLAR PANEL INSTALLER Work Phone: Plan of Treatment Date Care Activity Detail Author Start: 01-31-2023 Covid-19 Vaccine () Covid-19 Vaccine () [facility] Start: 05-01-2022 DEPRESSION ASSESSMENT DEPRESSION ASSESSMENT [facility] Start: 02-23-2020 HPV TESTING HPV TESTING [facility] Start: 2011 PAP TESTING PAP TESTING [facility] Start: 2009 Urine microalbumin profile [facility] Start: 02-23-2008 HEPATITIS C SCREENING HEPATITIS C SCREENING [facility] Start: 02-23-2008 HIV SCREENING HIV SCREENING [facility] Start: 1990 HEPATITIS B (1 of 3 - 3-dose series) HEPATITIS B (1 of 3 - 3-dose series) [facility] Start: 1990 Hepatitis B Vaccine (1 of 3 - 3-dose series) Hepatitis B Vaccine (1 of 3 - 3-dose series) [facility] COVID & INFLUENZA A/ B & RSV NAAT, ROUTINE COVID & INFLUENZA A/B & RSV NAAT, ROUTINE Microbiology Routine Upper respiratory tract infection, unspecified type Viral illness 12/15/2022 9:30 AM EDT [facility] Work Phone: ROUTINE FLU A/B + RSV ROUTINE FL U A/B + RSV Lab Routine Upper respiratory tract infection, unspecified type Viral illness 12/15/2022 9:30 AM EDT [facility] Work Phone: SARS-CoV-2 (COVID-19 ) RNA [Presence] in Respiratory specimen by NINA with probe detection COVID NAAT, ROUTINE Microbiology Routine Upper respiratory tract infection, unspecified type Viral illness 12/15/2022 9:30 AM EDT [facility] Work Phone: Payers Date Payer Category Payer Private Health Insurance [employer] A ETNA POS [id number] 2022-Present [phone] [address] [place] [address] POS [id number] 2022 Private Health Insurance [id number] Social History Date Type Detail Facility Start: 12-15-2022 Tobacco smoking stat [facility] Never smoked tobacco [facility] Start: 12-15-2022 Tobacco use and exposure Smoke less tobacco non-user [facility] Start: 12-15-2022 End: 03-08-2023 History of Social function [facility] Start: 12-15-2022 End: 03-08-2023 Tobacco use panel [facility] Start: 1990 Sex Assigned At Not on file [facility] Progress note 04-20-2023 Note Date & Type Note Facility 04-20-2023 Note HNO ID: [id number] Author: Amandeep Lockett APRN.SOLAR PANEL INSTALLER Service: ? Author Type: Nurse Practitioner Type: Progress Notes Filed: 04/20/2023 4:39 PM Note Text: Subjective HPI Nontoxic-appearing female presents urgent care chief complaint possible ear infection. Duration of symptoms 5 days. Associated symptoms ear/jaw pain. This started 4 to 5 days ago. Has not used any OTC medications. No ear trauma otorrhea. No loss of hearing. Denies any fever body aches chills productive cough chest pain shortness of breath pleuritic pain hemoptysis nausea vomiting abdominal pain change in bowel or bladder habits. Past medical history prescription medication use and allergies reviewed. .Patient presents with: Ear Pain: Right ear pain x5 days History reviewed. No pertinent past medical history. History reviewed. No pertinent surgical history. ALLERGIES Patient has no known allergies. MEDICATIONS No prescriptions on file. History reviewed. No pertinent family history. Social History Tobacco Use Smoking status: Never Smokeless tobacco: Never BP 104/62 Pulse 95 Temp 36.7 ?C (98 ?F) Resp 18 Wt 75.1 kg (165 lb 9.6 oz) LMP 04/03/2023 (Exact Date) SpO2 99% Review of Systems Constitutional: Negative for chills, fever and malaise/fatigue. HENT: Positive for ear pain. Negative for congestion, ear discharge, hearing loss, sinus pain, sore throat and tinnitus. Eyes: Negative for blurred vision, pain, discharge and redness. Respiratory: Negative for cough, hemoptysis, sputum production, shortness of breath, wheezing and stridor. Cardiovascular: Negative for chest pain. Gastrointestinal: Negative for abdominal pain, diarrhea, nausea and vomiting. Musculoskeletal: Negative for myalgias. Skin: Negative for itching and rash. Neurological: Negative for dizziness and headaches. Objective Physical Exam Constitutional: General: She is not in acute distress. Appearance: She is not diaphoretic. HENT: Head: Normocephalic. Jaw: No trismus, tenderness, swelling or pain on movement. Right Ear: Tympanic membrane, ear canal and external ear normal. No mastoid tenderness. Left Ear: Tympanic membrane, ear canal and external ear normal. No mastoid tenderness. Ears: Comments: With palpation/movement of jaw over TMJ joint. No redness. No edema. No erythema. Mouth/Throat: Mouth: Mucous membranes are moist. Pharynx: Oropharynx is clear. Uvula midline. No pharyngeal swelling, oropharyngeal exudate, posterior oropharyngeal erythema or uvula swelling. Eyes: Conjunctiva/sclera: Conjunctivae normal. Pupils: Pupils are equal, round, and reactive to light. Cardiovascular: Rate and Rhythm: Normal rate and regular rhythm. Heart sounds: Normal heart sounds. Pulmonary: Effort: Pulmonary effort is normal. No tachypnea, accessory muscle usage or respiratory distress. Breath sounds: Normal breath sounds. No stridor. No wheezing, rhonchi or rales. Abdominal: General: There is no distension. Palpations: Abdomen is soft. Tenderness: There is no abdominal tenderness. There is no guarding or rebound. Musculoskeletal: Cervical back: Normal range of motion and neck supple. No edema, erythema, rigidity or tenderness. No pain with movement. Normal range of motion. Lymphadenopathy: Cervical: No cervical adenopathy. Skin: General: Skin is warm and dry. Neurological: Mental Status: She is alert and oriented to person, place, and time. ASSESSMENT/PLAN: 1. 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 Pain with palpation over TMJ location and with range of motion of jaw. Suspicious of TMJ dysfunction. Treat conservatively. Patient was educated on supportive therapies. Patient will follow up with primary care provider as needed. Patient was instructed to immediately proceed to emergency room for any new, worsening, or symptoms lasting longer than anticipated. The patient's clinical presentation is otherwise unremarkable at this time. Based on exam and clinical finding, the patient is stable for discharge. Plan of care was discussed with patient. Patient verbalizes understanding and agrees to plan of care. This note was generated using WeGush software. It may contain errors in wording, punctuation, or spelling. Amandeep Lockett APRN.[facility] Progress note 03-08-2023 Note Date & Type Note Facility 03-08-2023 Note HNO ID: [id number] Author: Stevan Castaneda MD Service: ? Author Type: Physician Type: Progress Notes Filed: 03/08/2023 5:41 PM Note Text: Patient presents with: Sore Throat: ST, cough, fatigue and congestion x 3 days HPI: Feeling sick for 4 days. Multiple family members are ill too. Positive symptoms: Cough, Sore throat, Nasal Congestion, Rhinorrhea, Fatigue, feeling hot, nausea, Diarrhea, Negative symptoms: Shortness of breath, Chest pain, Vomiting, OTC: Cold Medicine Had a miscarriage about a month ago. Denies abdominal pain. MEDICATIONS: No current outpatient medications on file. No current facility-administered medications for this visit. ALLERGIES: ALLERGIES No Known Allergies VITALS: BP 122/80 Pulse 116 Temp (!) 38.1 ?C (100.5 ?F) (Tympanic) Resp 18 Wt 70.3 kg (155 lb) LMP 11/24/2022 (Exact Date) SpO2 98% PHYSICAL EXAM: GEN: mildly ill appearing HEENT: PERRL, EOMI, conjunctiva clear Ears: canals clear. TMs without erythema, bulge, or effusion Sinuses: non-tender frontal sinus, non-tender maxillary sinuses Throat: moist mucous membranes, pharyngeal erythema, no exudate, right tonsillar wall/right posterior pharynx has mild fullness compared to the left, Neck: supple, no thyromegaly, no lymphadenopathy, no voice hoarseness HEART: fast rate, regular rhythm, no murmurs LUNGS: clear to auscultation, no wheezes or crackles, no increased WOB; raspy cough. ASSESSMENT/PLAN: 1. Streptococcal pharyngitis - ICD9: 034.0, ICD10: J02.0 (primary diagnosis) 2. Sore throat - ICD9: 462, ICD10: J02.9 - Alere Strep Test positive. Likely co-infection with group A strep and viral URI. Monitor and follow up in the ER for symptoms of peritonsillar abscess: worsening or persistent fever, difficulty swallowing/breathing, neck pain, lethargy, enlarging right right side of the throat. - Discussed supportive care treatment with as needed analgesia. - Considered contagious until on antibiotics for 24 hours - STREP A MOLECULAR (POC) - AMOXICILLIN 875 MG-POTASSIUM CLAVULANATE 125 MG TABLET Stevan Castaneda MD [facility] History of Present illness Narrative 03-08-2023 Stevan Castaneda MD - 03/08/2023 5:16 PM EST Note Date & Type Note Facility 03-08-2023 History of Presen t illness Narrative Patient presents with: Sore Throat: ST, cough, fatigue and congestion x 3 days HPI: Feeling sick for 4 days. Multiple family members are ill too. Positive symptoms: Cough, Sore throat, Nasal Congestion, Rhinorrhea, Fatigue, feeling hot, nausea, Diarrhea, Negative symptoms: Shortness of breath, Chest pain, Vomiting, OTC: Cold Medicine Had a miscarriage about a month ago. Denies abdominal pain. MEDICATIONS: No current outpatient medications on file. No current facility-administered medications for this visit. ALLERGIES: ALLERGIES No Known Allergies VITALS: BP 122/80 Pulse 116 Temp (!) 38.1 C (100.5 F) (Tympanic) Resp 18 Wt 70.3 kg (155 lb) LMP 11/24/2022 (Exact Date) SpO2 98% PHYSICAL EXAM: GEN: mildly ill appearing HEENT: PERRL, EOMI, conjunctiva clear Ears: canals clear. TMs without erythema, bulge, or effusion Sinuses: non-tender frontal sinus, non-tender maxillary sinuses Throat: moist mucous membranes, pharyngeal erythema, no exudate, right tonsillar wall/right posterior pharynx has mild fullness compared to the left, Neck: supple, no thyromegaly, no lymphadenopathy, no voice hoarseness HEART: fast rate, regular rhythm, no murmurs LUNGS: clear to auscultation, no wheezes or crackles, no increased WOB; raspy cough. ASSESSMENT/PLAN: 1. Streptococcal pharyngitis - ICD9: 034.0, ICD10: J02.0 (primary diagnosis) 2. Sore throat - ICD9: 462, ICD10: J02.9 - Alere Strep Test positive. Likely co-infection with group A strep and viral URI. Monitor and follow up in the ER for symptoms of peritonsillar abscess: worsening or persistent fever, difficulty swallowing/breathing, neck pain, lethargy, enlarging right right side of the throat. - Discussed supportive care treatment with as needed analgesia. - Considered contagious until on antibiotics for 24 hours - STREP A MOLECULAR (POC) - AMOXICILLIN 875 MG-POTASSIUM CLAVULANATE 125 MG TABLET Stevan Castaneda MD documented in this encounter [facility] Progress note 12-15-2022 Note Date & Type Note Facility 12-15-2022 Note HNO ID: [id number] Author: Kaylynn Manning APRN.SOLAR PANEL INSTALLER Service: ? Author Type: Nurse Practitioner Type: Progress Notes Filed: 12/15/2022 9:57 AM Note Text: This note was created using PreAppsriter. Subjective Celia Mays is a 32 year old female. 32 year old female with PMH anxiety presents for complaints of illness. Acute onset 2 days ago +headache +chills +body aches +sore throat +nausea +fatigue +nasal congestion. Denies cough. Denies SOB. Denies dyspnea. Denies abdominal pain. Denies tobacco usage. 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 The history is provided by the patient. No bilingual speech language pathologist was used. URI She complains of sputum production. There is no chest tightness, cough, difficulty breathing, frequent throat clearing, hemoptysis, hoarse voice, shortness of breath or wheezing. This is a new problem. Episode onset: 2 days ago. The problem occurs constantly. The problem has been unchanged. Associated symptoms include ear congestion, a fever, headaches, malaise/fatigue, myalgias, nasal congestion, postnasal drip, rhinorrhea, sneezing and a sore throat. Pertinent negatives include no appetite change, chest pain, dyspnea on exertion, ear pain, heartburn, orthopnea, PND, sweats, trouble swallowing or weight loss. Her symptoms are aggravated by nothing. Her symptoms are alleviated by nothing. There are no known risk factors for lung disease. There is no history of asthma, bronchiectasis, bronchitis, COPD, emphysema or pneumonia. No past medical history on file. No past surgical history on file. ALLERGIES Patient has no known allergies. MEDICATIONS No prescriptions on file. No family history on file. Social History Tobacco Use Smoking status: Never Smokeless tobacco: Never Review of Systems Constitutional: Positive for fever and malaise/fatigue. Negative for appetite change and weight loss. HENT: Positive for postnasal drip, rhinorrhea, sneezing and sore throat. Negative for ear pain, hoarse voice and trouble swallowing. Eyes: Negative for photophobia, pain, discharge, redness, itching and visual disturbance. Respiratory: Positive for sputum production. Negative for apnea, cough, hemoptysis, chest tightness, shortness of breath and wheezing. Cardiovascular: Negative for chest pain, dyspnea on exertion and PND. Gastrointestinal: Negative for abdominal pain, diarrhea, heartburn, nausea and vomiting. Musculoskeletal: Positive for myalgias. Negative for arthralgias, back pain and gait problem. Skin: Negative for color change, pallor, rash and wound. Allergic/Immunologic: Negative for environmental allergies, food allergies and immunocompromised state. Neurological: Positive for headaches. Hematological: Negative for adenopathy. Does not bruise/bleed easily. Psychiatric/Behavioral: Negative for agitation and behavioral problems. Objective BP 110/78 Pulse (!) 121 Temp 37.5 ?C (99.5 ?F) Resp 24 Wt 64.7 kg (142 lb 9.6 oz) LMP 11/24/2022 (Exact Date) SpO2 99% Physical Exam Vitals and nursing note reviewed. Constitutional: General: She is not in acute distress. Appearance: Normal appearance. She is normal weight. She is not ill-appearing, toxic-appearing or diaphoretic. Comments: Appears uncomfortable, but non toxic. HENT: Head: Normocephalic and atraumatic. Right Ear: Ear canal and external ear normal. Left Ear: Ear canal and external ear normal. Nose: Nose normal. No congestion or rhinorrhea. Mouth/Throat: Mouth: Mucous membranes are moist. Pharynx: No oropharyngeal exudate or posterior oropharyngeal erythema. Eyes: General: Right eye: No discharge. Left eye: No discharge. Extraocular Movements: Extraocular movements intact. Conjunctiva/sclera: Conjunctivae normal. Pupils: Pupils are equal, round, and reactive to light. Cardiovascular: Rate and Rhythm: Regular rhythm. Pulses: Normal pulses. Heart sounds: Normal heart sounds. No murmur heard. No friction rub. Pulmonary: Effort: Pulmonary effort is normal. No respiratory distress. Breath sounds: Normal breath sounds. No stridor. No wheezing, rhonchi or rales. Chest: Chest wall: No tenderness. Abdominal: General: Abdomen is flat. There is no distension. Palpations: Abdomen is soft. There is no mass. Tenderness: There is no abdominal tenderness. There is no right CVA tenderness, left CVA tenderness, guarding or rebound. Hernia: No hernia is present. Musculoskeletal: General: No swelling, tenderness, deformity or signs of injury. Normal range of motion. Cervical back: Normal range of motion and neck supple. No rigidity. Right lower leg: No edema. Left lower leg: No edema. Lymphadenopathy: Cervical: Cervical adenopathy present. Skin: General: Skin is warm and dry. Capillary Refill: Capillary refill takes less than 2 seconds. Coloration: Skin is not jaundiced or pale. (more content not included)... [facility] History of Present illness Narrative 12-15-2022 Kaylynn Manning APRN.[facility] - 12/15/2022 9:17 AM EDT Note Date & Type Note Facility 12-15-2022 History of Presen t illness Narrative This note was created using PreAppsriter. Subjective Celia Mays is a 32 year old female. 32 year old female with PMH anxiety presents for complaints of illness. Acute onset 2 days ago +headache +chills +body aches +sore throat +nausea +fatigue +nasal congestion. Denies cough. Denies SOB. Denies dyspnea. Denies abdominal pain. Denies tobacco usage. 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 The history is provided by the patient. No bilingual speech language pathologist was used. URI She complains of sputum production. There is no chest tightness, cough, difficulty breathing, frequent throat clearing, hemoptysis, hoarse voice, shortness of breath or wheezing. This is a new problem. Episode onset: 2 days ago. The problem occurs constantly. The problem has been unchanged. Associated symptoms include ear congestion, a fever, headaches, malaise/fatigue, myalgias, nasal congestion, postnasal drip, rhinorrhea, sneezing and a sore throat. Pertinent negatives include no appetite change, chest pain, dyspnea on exertion, ear pain, heartburn, orthopnea, PND, sweats, trouble swallowing or weight loss. Her symptoms are aggravated by nothing. Her symptoms are alleviated by nothing. There are no known risk factors for lung disease. There is no history of asthma, bronchiectasis, bronchitis, COPD, emphysema or pneumonia. No past medical history on file. No past surgical history on file. ALLERGIES Patient has no known allergies. MEDICATIONS No prescriptions on file. No family history on file. Social History Tobacco Use Smoking status: Never Smokeless tobacco: Never Review of Systems Constitutional: Positive for fever and malaise/fatigue. Negative for appetite change and weight loss. HENT: Positive for postnasal drip, rhinorrhea, sneezing and sore throat. Negative for ear pain, hoarse voice and trouble swallowing. Eyes: Negative for photophobia, pain, discharge, redness, itching and visual disturbance. Respiratory: Positive for sputum production. Negative for apnea, cough, hemoptysis, chest tightness, shortness of breath and wheezing. Cardiovascular: Negative for chest pain, dyspnea on exertion and PND. Gastrointestinal: Negative for abdominal pain, diarrhea, heartburn, nausea and vomiting. Musculoskeletal: Positive for myalgias. Negative for arthralgias, back pain and gait problem. Skin: Negative for color change, pallor, rash and wound. Allergic/Immunologic: Negative for environmental allergies, food allergies and immunocompromised state. Neurological: Positive for headaches. Hematological: Negative for adenopathy. Does not bruise/bleed easily. Psychiatric/Behavioral: Negative for agitation and behavioral problems. Objective BP 110/78 Pulse (!) 121 Temp 37.5 C (99.5 F) Resp 24 Wt 64.7 kg (142 lb 9.6 oz) LMP 11/24/2022 (Exact Date) SpO2 99% Physical Exam Vitals and nursing note reviewed. Constitutional: General: She is not in acute distress. Appearance: Normal appearance. She is normal weight. She is not ill-appearing, toxic-appearing or diaphoretic. Comments: Appears uncomfortable, but non toxic. HENT: Head: Normocephalic and atraumatic. Right Ear: Ear canal and external ear normal. Left Ear: Ear canal and external ear normal. Nose: Nose normal. No congestion or rhinorrhea. Mouth/Throat: Mouth: Mucous membranes are moist. Pharynx: No oropharyngeal exudate or posterior oropharyngeal erythema. Eyes: General: Right eye: No discharge. Left eye: No discharge. Extraocular Movements: Extraocular movements intact. Conjunctiva/sclera: Conjunctivae normal. Pupils: Pupils are equal, round, and reactive to light. Cardiovascular: Rate and Rhythm: Regular rhythm. Pulses: Normal pulses. Heart sounds: Normal heart sounds. No murmur heard. No friction rub. Pulmonary: Effort: Pulmonary effort is normal. No respiratory distress. Breath sounds: Normal breath sounds. No stridor. No wheezing, rhonchi or rales. Chest: Chest wall: No tenderness. Abdominal: General: Abdomen is flat. There is no distension. Palpations: Abdomen is soft. There is no mass. Tenderness: There is no abdominal tenderness. There is no right CVA tenderness, left CVA tenderness, guarding or rebound. Hernia: No hernia is present. Musculoskeletal: General: No swelling, tenderness, deformity or signs of injury. Normal range of motion. Cervical back: Normal range of motion and neck supple. No rigidity. Right lower leg: No edema. Left lower leg: No edema. Lymphadenopathy: Cervical: Cervical adenopathy present. Skin: General: Skin is warm and dry. Capillary Refill: Capillary refill takes less than 2 seconds. Coloration: Skin is not jaundiced or pale. Findings: No bruising, erythema, lesion or rash. Neurological: General: No focal deficit present. Mental Status: She is alert and oriented to person, place, and time. Cranial Nerves: No cranial nerve deficit. Sensory: No sensory deficit. Motor: No weakness. Coordination: Coordination normal. Gait: Gait normal. Psychiatric: Mood and Affect: Mood normal. Behavior: Behavior normal. Thought Content: Thought content normal. Judgment: Judgment normal. Assessment and Plan ASSESSMENT/PLAN: 1. Upper respiratory tract infection, unspecified type - ICD9: 465.9, ICD10: J06.9 (primary diagnosis) - Discussed viral etiology and rationale for treatment. - Rapid strep negative in office today - Symptomatic treatment with prn analgesia - Supportive care with fluids and rest - The patient may also use OTC cough and cold meds as needed, warm salt water gargles, throat lozenges and/or OTC throat spray as needed, and nasal saline gtts and suction prn. - Follow up in 3-5 days if symptoms persist or sooner if worsening of symptoms - - STREP A MOLECULAR (POC) - ACETAMINOPHEN 500 MG TABLET - COVID & INFLUENZA A/B & RSV NAAT, ROUTINE - COVID NAAT, ROUTINE - ROUTINE FLU A/B + RSV 2. Viral illness - ICD9: 079.99, ICD10: B34.9 - Discussed viral etiology and rationale for treatment. - Symptomatic treatment with prn analgesia - Supportive care with fluids and rest - COVID & INFLUENZA A/B & RSV NAAT, ROUTINE - COVID NAAT, ROUTINE - ROUTINE FLU A/B + RSV Kaylynn Manning APRN.SOLAR PANEL INSTALLER documented in this encounter [facility] Evaluation note Note Date & Type Note Facility documented in this encounter [facility] Evaluation note Note Date & Type Note Facility documented in this encounter [facility] Medications Administered Section Inactive Administered Medications - up to 3 most recent administrations Medication Order MAR Action Action Date Dose Rate Site acetaminophen 1,000 mg tab(s) (TYLENOL) 1,000 mg, ORAL, ONCE, 1 dose, On Jeanie 12/15/22 at 0930, If ordered PRN for pain, patient/guardian may elect to receive this medication for higher pain levels INSTEAD of the opioid, if preferred: Yes Given 12/15/2022 9:37 AM EDT 1,000 mg Summary Purpose Family History No Family History Records Found Advance Directives No Advanced Directives Records Found Additional Source Comments Source Comments (unrecognize d section and content) In the event this informatio n is protected by the Federal Confidentiality of Alcohol and Drug Abuse Patient Records regulations: The Federal rules restrict any use of the information to criminally investigate or prosecute any alcohol or drug abuse patient[facility] event this information is protected by the Federal Confidentiality of Alcohol and Drug Abuse Patient Records regulations: The Federal rules restrict any use of the information to criminally investigate or prosecute any alcohol or drug abuse patient.[facility] Reason for Visit (unrecogniz ed section and content) Reason Comments Sore Throat ST, cough, fatigue a nd congestion x 3 days Care Teams (unrecognized sec tion and content) Manager Of Quality Relationship Specialty Start Date End Date Renea Westfall DO [address] [facility] [address] [place] [address] PCP - General Family Medicine 12/15/22 INFORMATION SOURCE (unrecogn ized section and content) FOR RECORDS PERTAINING TO PATIENTS WHO ARE OR HAVE BEEN ENROLLED IN A CHEMICAL DEPENDENCY/SUBSTANCEABUSE PROGRAM, SOME INFORMATION MAY BE OMITTED. This clinical summary was aggregated from multiple sources. Caution should be exercised in using it in the provision of clinical care. This summary normalizes information from multiple sources, and as a consequence, information in this document may materially change the coding, format and clinical context of patient data. In addition, data may be omitted in some cases. CLINICAL DECISIONS SHOULD BE BASED ON THE PRIMARY CLINICAL RECORDS. [facility]. provides no warranty or guarantee of the accuracy or completeness of information in this document.
[2023-05-17 14:58] LABS: Fibrinogen 253 mg/dl (203-444)
[2023-05-25 18:08] LABS: Anti-Cardiolipin Ab, IgG, Qn < 9 GPL U/mL (0-14); Anti-Cardiolipin Ab, IgM, Qn < 9 MPL U/mL (0-12); Beta-2-Glycoprotein I IgA <9 (0-25); Beta-2-Glycoprotein I IgG <9 (0-20); Beta-2-Glycoprotein I IgM <9 (0-32); Dilute Prothrombin Time (dPT) 35.4 sec (0.0-47.6); Dilute Russell Viper Venom 33.1 sec (0.0-47.0); Factor VIII Activity 101 % (56-140); Factor XI Activity 93 % (60-150); Interpretation Comment: (.); PTT-LA 32.4 sec (0.0-43.5); Thrombin Time 18.9 sec (0.0-23.0)
== END | disposition home or self-care (01) ==
LOC: PAVLAB 13:10
PROVIDERS: Obstetrics & Gynecology; PCP Family Medicine; Visit Provider Obstetrics & Gynecology
DX: D68.62 Lupus anticoagulant syndrome (principal)
CPT/HCPCS: 36415; 81240; 81241; 85240; 85270; 85384; 86146; 86147

== ENCOUNTER → 2023-10-16 | Outpatient (CLI) | payer OTHER, SELFPAY ==
[2023-10-16 22:21] LABS: hCG Titer Quant., Serum 2129 mIU/mL (1-3)
== END | disposition home or self-care (01) ==
LOC: LAB 16:20
PROVIDERS: PCP Family Medicine; Referring Provider Obstetrics & Gynecology; Visit Provider Obstetrics & Gynecology
DX: Z34.90 Encounter for supervision of normal pregnancy, unspecified, unspecified trimester (principal); Z87.59 Personal history of other complications of pregnancy, childbirth and the puerperium
CPT/HCPCS: 36415; 84702

== ENCOUNTER → 2023-10-18 | Outpatient (CLI) | payer OTHER, SELFPAY ==
[2023-10-18 18:43] LABS: hCG Titer Quant., Serum 5382 mIU/mL (1-3)
== END | disposition home or self-care (01) ==
PROVIDERS: Referring Provider Obstetrics & Gynecology; Visit Provider Obstetrics & Gynecology
DX: Z34.90 Encounter for supervision of normal pregnancy, unspecified, unspecified trimester (principal); Z87.59 Personal history of other complications of pregnancy, childbirth and the puerperium
CPT/HCPCS: 36415; 84702

== ENCOUNTER → 2023-10-23 | Outpatient (CLI) | payer OTHER, SELFPAY ==
--- NOTE | 2023-10-23 08:38 | US_ITS ---
STUDY: FIRST TRIMESTER OBSTETRICAL ULTRASOUND REASON FOR EXAM: Female, 33 years old well being LMP: September 13, 2023. TECHNIQUE: Transvaginal TECHNICAL QUALITY: Adequate. PRIOR ULTRASOUND: None. FINDINGS: There is visualization of a single gestational sac in a normal intrauterine position. The mean sac diameter (MSD) measures 1.48 cm, indicating an estimated gestational age (EGA) of 6 weeks, 2 days. The gestational sac shape is within normal limits. There is a visualized yolk sac. The yolk sac measures 3 mm. The placenta is non-visualized. There is no demonstrated embryo ( pole). The estimated gestation age (EGA) by LMP is 5 weeks, 5 days. The estimated date of delivery (ROLANDO) by LMP is June 19, 2023. The estimated gestation age (EGA) by US is 6 weeks, 2 days. The estimated date of delivery (ROLANDO) by US is June 15, 2023. The uterus measures 9.8 cm x 5.6 cm x 5 cm. There is no demonstrated uterine fibroid. The cervix is closed. The right ovary measures 3.6 cm x 2.3 cm x 2.8 cm. There is a corpus luteum cyst within the left ovary measuring 2.2 cm x 1.8 cm x 1.7 cm. There is no visualized right adnexal mass or complex lesion. The left ovary measures 3.3 cm x 2.4 cm by 1.5 cm. There is no left ovarian cyst. There is no visualized left adnexal mass or complex lesion. There is no fluid in the cul de sac. US/Transvaginal w/Preg US IMPRESSION: Intrauterine gestation with a mean gestational age of 6 weeks and 2 days. Right ovarian corpus luteum cyst. Electronically Signed: Wilfrid Rashid MD at 15:05 EDT ,
== END | disposition home or self-care (01) ==
PROVIDERS: PCP Family Medicine; Referring Provider Obstetrics & Gynecology; Visit Provider Obstetrics & Gynecology
DX: Z34.90 Encounter for supervision of normal pregnancy, unspecified, unspecified trimester (principal); Z87.59 Personal history of other complications of pregnancy, childbirth and the puerperium
CPT/HCPCS: 76817

== ENCOUNTER → 2023-10-31 | Outpatient (CLI) | payer OTHER, SELFPAY ==
--- NOTE | 2023-10-31 08:37 | US_ITS ---
INDICATION: viability EXAMINATION: Ultrasound US OB Transvaginal TECHNIQUE: Transvaginal (for optimal evaluation of the adnexa) pelvic ultrasound was performed. Grayscale, spectral waveform, and color flow Doppler evaluation of the adnexa. COMPARISON: Prior study dated: 10/23/2023 LMP: [09/13/2023 Beta-hCG: Unknown FINDINGS: UTERUS: 9.9 x 6.2 x 5.8 cm. RIGHT OVARY: 3.7 x 2.5 x 2.3 cm. Normal. LEFT OVARY: 2.7 x 1.9 x 1.8 cm. Normal. FREE FLUID: None. INTRAUTERINE GESTATIONAL SAC(s) (size/shape): Single. The sac measures 2.6 cm in mean sac diameter. YOLK SAC: Identified measuring about 4 mm. POLE: Identified CRL 6 mm. ESTIMATED GESTATION AGE: 7 weeks and 1 day. HEART MOTION: 126 bpm. PLACENTA: Not visualized due to age. SUBCHORIONIC HEMORRHAGE: None. AMNIOTIC FLUID: Qualitatively normal. US/Transvaginal w/Preg US IMPRESSION: Single live intrauterine . Estimated gestational age is 7 weeks and 1 day. The ROLANDO is 06/17/2024. Electronically Signed: Slava Cummings MD at 15:16 EDT ,
== END | disposition home or self-care (01) ==
PROVIDERS: PCP Family Medicine; Referring Provider Obstetrics & Gynecology; Visit Provider Obstetrics & Gynecology
DX: Z34.90 Encounter for supervision of normal pregnancy, unspecified, unspecified trimester (principal)
CPT/HCPCS: 76817

== ENCOUNTER → 2023-11-09 | Outpatient (CLI) | payer OTHER, SELFPAY ==
[2023-11-11 16:09] LABS: Chlamydia By Nucleic Acid AMP Negative (Negative); Gonococcus By Nucleic Acid AMP Negative (Negative)
== END | disposition home or self-care (01) ==
LOC: LABSPEC 12:00
PROVIDERS: PCP Family Medicine; Referring Provider Advanced Practice Midwife; Visit Provider Advanced Practice Midwife
DX: O09.90 Supervision of high risk pregnancy, unspecified, unspecified trimester (principal); F12.90 Cannabis use, unspecified, uncomplicated; Z3A.00 Weeks of gestation of pregnancy not specified
CPT/HCPCS: 87086; 87491; 87591

== ENCOUNTER → 2023-11-22 | Outpatient (CLI) | payer OTHER, SELFPAY ==
[2023-11-22 10:41] LABS: Absolute Lymphocyte Count 2.33 X10^3/uL (0.83-4.51); Absolute Neutrophil Count 7.5 X10^3/uL (2.0-7.7); Basophil# 0.02 X10^3/uL; Basophil% 0.2 % (0-1); Eosinophil# 0.09 X10^3/uL; Eosinophils% 0.9 % (0-5); Hematocrit 39.2 % (37-47); Hemoglobin 13.2 g/dL (12.0-15.0); Lymphocyte # 2.33 X10^3/ul (0.83-4.51); Lymphocyte % 22.2 % (19-41); Mean Corp Hgb Conc 33.7 g/dL (32-36); Mean Corpuscular Hgb 28.9 pg (27.0-32.0); Mean Corpuscular Volume 85.8 fL (81-99); Monocyte# 0.51 X10^3/uL; Monocyte% 4.9 % (0-10); NRBC Flagged by Analyzer 0 % (0-5); Neutrophil # 7.48 X10^3/uL (2.7-7.7); Neutrophil % 71.2 % (47-70); Platelet Count 170 K/mm3 (150-450); RBC Distribution Width CV 13.2 % (11.6-14.6); RBC Distribution Width SD 40.6 fl (35.1-43.9); Red Blood Count 4.57 M/mm3 (4.2-5.4); White Blood Count 10.5 K/mm3 (4.4-11.0)
[2023-11-22 11:55] LABS: HIV - WCH Non-Reactive (Nonreactive); Hepatitis B Surface Antigen Non-Reactive (Nonreactive); Hepatitis C Antibody Non-Reactive (Nonreactive); Rubella IgG Reactive (Nonreactive); Syphilis Antibodies Non-reactive
== END | disposition home or self-care (01) ==
LOC: PAVLAB 10:20
PROVIDERS: PCP Family Medicine; Referring Provider Advanced Practice Midwife; Visit Provider Advanced Practice Midwife
DX: O09.90 Supervision of high risk pregnancy, unspecified, unspecified trimester (principal); F12.90 Cannabis use, unspecified, uncomplicated; Z3A.00 Weeks of gestation of pregnancy not specified
CPT/HCPCS: 36415; 85025; 86703; 86762; 86780; 86803; 86850; 86900; 86901; 87340

== ENCOUNTER → 2024-03-19 | Outpatient (CLI) | payer OTHER, SELFPAY ==
[2024-03-19 10:31] LABS: Absolute Neutrophil Count 8.1 X10^3/uL (2.0-7.7); Basophil# 0.02 X10^3/uL; Basophil% 0.2 % (0-1); Eosinophil# 0.07 X10^3/uL; Eosinophils% 0.7 % (0-5); Hematocrit 34.1 % (37-47); Hemoglobin 11.8 g/dL (12.0-15.0); Lymphocyte % 17.8 % (19-41); Mean Corp Hgb Conc 34.6 g/dL (32-36); Mean Corpuscular Hgb 31.2 pg (27.0-32.0); Mean Corpuscular Volume 90.2 fL (81-99); Mean Platelet Vol. 11.9 fl (6.2-12.0); Monocyte% 4.7 % (0-10); NRBC Flagged by Analyzer 0 % (0-5); Neutrophil # 8.06 X10^3/uL (2.7-7.7); Neutrophil % 75.3 % (47-70); Platelet Count 136 K/mm3 (150-450); RBC Distribution Width CV 13.9 % (11.6-14.6); RBC Distribution Width SD 45.6 fl (35.1-43.9); Red Blood Count 3.78 M/mm3 (4.2-5.4); White Blood Count 10.7 K/mm3 (4.4-11.0)
[2024-03-19 10:41] LABS: Glucose Challenge Gest 1H 50g 102 mg/dL (70-140)
[2024-03-19 11:15] LABS: HIV - WCH Non-Reactive (Nonreactive); Syphilis Antibodies Non-reactive
== END | disposition home or self-care (01) ==
PROVIDERS: PCP Family Medicine; Referring Provider Obstetrics & Gynecology; Visit Provider Obstetrics & Gynecology
DX: O09.90 Supervision of high risk pregnancy, unspecified, unspecified trimester (principal); Z3A.00 Weeks of gestation of pregnancy not specified; Z13.1 Encounter for screening for diabetes mellitus
CPT/HCPCS: 36415; 82950; 85025; 86703; 86780

== ENCOUNTER → 2024-04-18 | Outpatient (CLI) | payer OTHER, SELFPAY ==
[2024-04-18 12:04] LABS: Hematocrit 37.6 % (37-47); Hemoglobin 12.8 g/dL (12.0-15.0); Mean Corpuscular Hgb 31.4 pg (27.0-32.0); Mean Corpuscular Volume 92.2 fL (81-99); Mean Platelet Vol. 12.6 fl (6.2-12.0); Platelet Count 128 K/mm3 (150-450); RBC Distribution Width SD 46.7 fl (35.1-43.9); Red Blood Count 4.08 M/mm3 (4.2-5.4)
== END | disposition home or self-care (01) ==
LOC: BWCLAB 09:23
PROVIDERS: PCP Family Medicine; Referring Provider Obstetrics & Gynecology; Visit Provider Obstetrics & Gynecology
DX: O99.119 Other diseases of the blood and blood-forming organs and certain disorders involving the immune mechanism complicating pregnancy, unspecified trimester (principal); D69.6 Thrombocytopenia, unspecified; Z3A.00 Weeks of gestation of pregnancy not specified
CPT/HCPCS: 36415; 85027

== ENCOUNTER → 2024-05-16 | Outpatient (CLI) | payer OTHER, SELFPAY ==
[2024-05-16 10:58] LABS: Absolute Lymphocyte Count 1.81 X10^3/uL (0.83-4.51); Absolute Neutrophil Count 7.1 X10^3/uL (2.0-7.7); Basophil# 0.04 X10^3/uL; Basophil% 0.4 % (0-1); Eosinophil# 0.08 X10^3/uL; Eosinophils% 0.8 % (0-5); Hemoglobin 12.8 g/dL (12.0-15.0); Lymphocyte # 1.81 X10^3/ul (0.83-4.51); Lymphocyte % 18.9 % (19-41); Mean Corp Hgb Conc 33.7 g/dL (32-36); Mean Corpuscular Hgb 31.2 pg (27.0-32.0); Mean Corpuscular Volume 92.7 fL (81-99); Mean Platelet Vol. 12.8 fl (6.2-12.0); Monocyte# 0.42 X10^3/uL; Monocyte% 4.4 % (0-10); NRBC Flagged by Analyzer 0 % (0-5); Neutrophil # 7.11 X10^3/uL (2.7-7.7); Platelet Count 121 K/mm3 (150-450); RBC Distribution Width CV 14.2 % (11.6-14.6); RBC Distribution Width SD 47.7 fl (35.1-43.9); White Blood Count 9.6 K/mm3 (4.4-11.0)
== END | disposition home or self-care (01) ==
LOC: BWCLAB 09:48
PROVIDERS: PCP Family Medicine; Referring Provider Obstetrics & Gynecology; Visit Provider Obstetrics & Gynecology
DX: O09.92 Supervision of high risk pregnancy, unspecified, second trimester (principal); O99.112 Other diseases of the blood and blood-forming organs and certain disorders involving the immune mechanism complicating pregnancy, second trimester; D69.6 Thrombocytopenia, unspecified; Z3A.00 Weeks of gestation of pregnancy not specified
CPT/HCPCS: 36415; 85025; 87081

== ENCOUNTER 2024-06-14 16:02 | Inpatient (IN) | payer OTHER, SELFPAY ==
[2024-06-14] VITALS (29 sets, daily range): BP systolic 102–159; BP diastolic 56–97; PULSE 85–117; RESP 16–18; TEMP 36.7–37.2; O2SAT 97–100; BMI 33.3
[2024-06-14 16:52] LABS: Absolute Lymphocyte Count 2.35 X10^3/uL (0.83-4.51); Absolute Neutrophil Count 7.8 X10^3/uL (2.0-7.7); Basophil# 0.04 X10^3/uL; Basophil% 0.4 % (0-1); Eosinophils% 0.9 % (0-5); Hematocrit 36.2 % (37-47); Hemoglobin 12.8 g/dL (12.0-15.0); Lymphocyte # 2.35 X10^3/ul (0.83-4.51); Lymphocyte % 21.2 % (19-41); Mean Corp Hgb Conc 35.4 g/dL (32-36); Mean Corpuscular Hgb 31.8 pg (27.0-32.0); Mean Corpuscular Volume 89.8 fL (81-99); Mean Platelet Vol. 12.9 fl (6.2-12.0); Monocyte# 0.75 X10^3/uL; Monocyte% 6.8 % (0-10); NRBC Flagged by Analyzer 0 % (0-5); Neutrophil # 7.78 X10^3/uL (2.7-7.7); Platelet Count 139 K/mm3 (150-450); RBC Distribution Width CV 13.6 % (11.6-14.6); RBC Distribution Width SD 43.9 fl (35.1-43.9); Red Blood Count 4.03 M/mm3 (4.2-5.4); White Blood Count 11.1 K/mm3 (4.4-11.0)
--- NOTE | 2024-06-14 16:57 | HP.PCM_ITS ---
History and Physical Intake Vital Signs 06/12/2513:35 06/14/2514:14 06/14/2514:15 Height 5 ft 4 in 5 ft 4 in 5 ft 4 in Weight: 199 lb 2 oz 195 lb 4 oz BMI 34.2 33.5 BP 121/80 H 128/87 H Intake Visit Reasons: Cervix check Target Setter Required: No Is patient in pain?: No Allergies No Known Allergies Allergy (Verified 06/14/24 15:14) Medications ?Medication ?Instructions ?Recorded ?Confirmed ?Type PNV 153-FA 400 mcg-om3 35 mg-dha tab PO 11/03/23 06/14/24 History 25 mg-epa 5 mg-fish oil chew tablet Last Menstrual Period: 09/13/23 Zika: Zika virus screening: Negative : No Have you fallen in the past year?: No PFSH PFSH Medical History Partial molar Seasonal allergies Alcohol use Low iron Easy bruising Restless legs Back pain Non-smoker Chest pain Anxiety Asthma Surgical History H/O section History of rhinoplasty S/P dilation and curettage (~05/26/21) Hx of oral surgery Hx of appendectomy Hx of breast augmentation Family History Mother , age 57 Cancer lungGrandmother , age 45 CancerAunt , age 26 CancerGrandfather Cancer skinGrandmother Breast cancerGrandfather Myocardial infarctionFather HypertensionAunt Breast cancerAunt Cancer eyeAunt Cancer boneUncle Cancer, Onset Age: 60 Maternal Lung & mets to Brain Social History adopted: No household members: family housing: house number of children: 3 current occupational status: unemployed current occupation: [employer] pets and animals: Yes pets and animals: dog(s), snake(s), iguana(s) and turtle(s) history of recent travel: No sexually active: Yes Smoking Status: Never smoker second hand exposure: No alcohol intake: current alcohol intake frequency: holidays/special occasions only details: Not while substance use type: former substance user Date of last use: 3 months prior to beginning to conceive and marijuana well-balanced diet: daily or most days caffeine: No eating out: 1-3 times/week during the past year weight has: increased > 10 lbs what type of physical activity do you participate in: walking frequency: 1-2 times per week duration: 45-60 minutes/day jannet/sabianism: Shinto seatbelt use: always do you feel safe at home: Yes additional social history: - Candido (sales) History 5 Elective abortions Hx Para 2 Spontaneous abortions 1 Hx # Term Pregnancies 1 Ectopic pregnancies 1 Hx # Pregnancies 1 Multiple births 1 # of living children 3 Past Pregnancies Del. Date Name GA/Weeks Outcome Route Bth Weight Infant Gen [facility] Unknown Dec 2022 miscarriage 9 spontaneous ? 11/25/17 Primitivo 39 live - full term 7lbs 3oz Female 3 hours epidural [place] ? Candido 10/13/19 David 29 live - 3#2oz; 2#15oz Female 2 days general [place] ? Candido 05/26/21 ? ? molar ? Delivery Date: 11/25/17 Last Updated by: Azucena Marshall internal laceration repair; epistomy Delivery Date: 10/13/19 Last Updated by: Azucena Marshall identical twins; PPROM; ? placental abruption; ? PP hemorrhage HPI Cervix check Details: CELIA MAYS is a 34 year old who presents for early contractions and spotting, she is 5 cm dilated with a bulging bag OB Visit ROLANDO Calculator ? Estimated Delivery Date Method Current WG Current Estimate 06/19/24 LMP (Certain) 39w 2d Other Estimates 06/18/24 Ultrasound #1 39w 3d Expected Delivery Route/Plan patient counseled regarding risks/benefits of trial of labor versus repeat . ACOG/uptodate education given to patient. [] % likelihood of success per calculator TOLAC consent form signed: [] Specific Issue/Plans Covid status: [] Flu vaccine: declined Tdap vaccine: [] Rhogam: NA LARC form signed: yes Problem list reviewed and updated with the most current plan of care details and appropriate orders placed. Relevant counseling for the gestational age provided. Continue routine care and follow up unless otherwise noted in visit not es/problem list details Initial Weight: Not Recorded Date -?-?-?-?-?-?-?-?-?-?-?-?- EGA Weight BP Urine Prot -?-?-?-?-?-?-?-?-?-?--?-?- Glucose FHR FuHt Pres Dilation -?-?-?-?-?-?-?-?-?-?-?-?- Effaced St Visit Note 11/09/23-?-?-?-?-?-?-?-?-?-?-?-?- 8w 1d 164 lb 6 oz 118/76 -?-?-?-?-?-?- ?-?-?-?-?-?- 168 ? ? -?-?-?-?-?-?-?-?-?-?-?-?- ? KW- CRL 17mm. Desires NIPT. desires TOLAC. records requested 12/07/23-?-?-?-?-?-?-?-?-?-?-?-?- 12w 1d 167 lb 119/76 Negative -?-? -?-?-?-?-?-?-?-?-?-?- Negative ? ? ? -?-?-?-?-?-?-?-?-?-?-?-?- ? JV- CRL measuring 12 weeks 2 days and +FM. patient reassured and she found out it's a boy!! low risk NIPT. RTO in 2 weeks for another heart beat check due to h/o loss x 2 12/19/23-?-?-?-?-?-?-?-?-?-?-?-?- 13w 6d 169 lb 8 oz 124/74 Negative -?-? -?-?-?-?-?-?-?-?-?-?- Negative 158 ? ? -?-?-?-?-?-?-?-?-?-?-?-?- ? KW- no vb/lof/ctx. good fm. doing well. +fm and FHT on US 01/15/24-?-?-?-?-?-?-?-?-?-?-?-?- 17w 5d 169 lb 117/77 Negative -?-? -?-?-?-?-?-?-?-?-?-?- Negative 140 ? ? -?-?-?-?-?-?-?--?-?-?-?-?- ? KW- no vb/ctx. some fm. US scheduled. anxiety noted during appts due to hx of loss. 02/15/24-?-?-?-?-?-?-?-?-?-?-?-?- 22w 1d 177 lb 114/66 Negative -?-? -?-?-?-?-?-?-?-?-?-?- Negative 150 ? ? -?-?-?-?-?-?-?-?-?-?-?-?- ? SM-SM- no vb lof good fm no regular ctx discussed low lying placenta posterior 03/14/24-?-?-?-?-?-?-?-?-?-?-?-?- 26w 1d 182 lb 2 oz 112/68 Negative -?-? -?-?-?-?-?-?-?-?-?-?- Negative 146 ? ? -?-?-?-?-?-?-?-?-?-?-?-?- ? MH-No VB, LOF. Good Fm. Few BHCtx last week but resolved with rest. Larc. 04/04/24-?-?-?-?-?-?-?-?-?-?-?-?- 29w 1d 182 lb 4 oz 109/75 -?-?-?-?-?-?- ?-?-?-?-?-?- 129 30 ? -?-?-?-?-?-?-?-?-?-?-?- ?- ? JV- no complaints today other than some chronic low back pain. Still wants to attempt . need records of prior cs scar. placenta is no longer low lying. passed her 1 hr gct. declines vaccines this . JV- no complaints today other than some chronic low back pain. Still wants to attempt . need records of prior cs scar. placenta is no longer low lying. passed her 1 hr gct. declines vaccines this . rpt plts next visit. 04/18/24-?-?-?-?-?-?-?-?-?-?-?-?- 31w 1d 187 lb 6 oz 102/71 Negative -?-? -?-?-?-?-?-?-?-?-?-?- Negative 145 32 ? -?-?-?-?-?-?-?-?-?-?-?- ?- ? JV- some back pain. no other complaints. rpt cbc today is pending. 05/02/24-?-?-?-?-?-?-?-?-?-?-?-?- 33w 1d 190 lb 2 oz 121/77 Trace -?-?-?- ?-?-?-?-?-?-?-?-?- Negative 135 34 ? -?-?-?-?-?-?-?-?-?-?-?- ?- ? JV- no lof, vaginal bleeding, or dec fm. back pain resolved. rpt plts again in 2 weeks. 05/16/24-?-?-?-?-?-?-?-?-?-?-?-?- 35w 1d 190 lb 6 oz 123/79 Negative -?-? -?-?-?-?-?-?-?-?-?-?- Negative 140 35 Cephalic -?-?-?-?-?-?-?-? -?-?-?-?- ? SM- no vb lof good fm no reuglar ctx repeat cbc 05/23/24-?-?-?-?-?-?-?-?-?-?-?--?- 36w 1d 191 lb 2 oz 120/77 Negative -?-? -?-?-?-?-?-?-?-?-?-?- Negative 150 36 Cephalic -?-?-?-?-?-?-?-? -?-?-?-?- ? JV- GBS collected. tolac consent given. Declines pelvic exam. no complaints. 05/30/24-?-?-?-?-?-?-?-?-?-?-?-?- 37w 1d 190 lb 107/74 Negative -?-? -?-?-?-?-?-?-?-?-?-?- Negative 140 37 Cephalic -?-?-?-?-?-?-?-? -?-?-?-?- ? SM- no vb lof good fm no reuglar ctx 06/06/24-?-?-?-?-?-?-?-?-?-?-?-?- 38w 1d 193 lb 8 oz 122/83 Trace -?-?-?- ?-?-?-?-?-?-?-?-?- Negative 150 38 Cephalic -?-?-?-?-?-?-?-? -?-?-?-?- ? JV- no lof, vaginal bleeding, or dec fm. vtx on scan today. declines pelvic exam. 06/12/24-?-?--?-?-?-?-?-?-?-?-?-?- 39w 0d 199 lb 2 oz 121/80 -?-?-?-?-?-?- ?-?-?-?-?-?- 130 39 Cephalic -?-?-?-?-?-?-?-? -?-?-?-?- ? SM- no vb lof good fm no regular ctx wants membrane sweep next week declines pelvic exam ACOG First Trimester First Trimester: Desire for , Alcohol, Tobacco Cessation, Illicit/ Recreational Drug/Substance Use, Intimate Partner Violence, Barriers to care, Unstable Housing, Communication Barriers, Environmental/Work Hazards, Anticipated Course of Care, Toxoplasmosis Precations, Use of Any medications, Sexual activity, Exercise, Dental Care, Sauna/Hot tub use, Seat Belt use, Childbirth classes/Hospital facilities, Travel, Indications for Ultrasound and Screening for Aneuploidy; Discussed Second Trimester Second Trimester: Signs and Symptoms of Labor, Selecting a care provider, Reproductive Life Planning & Contreception, Care Planning and Depression/Anxiety; Discussed Tobacco Cessation and Discussed Intimate Partner Violence Third Trimester Third Trimester: Pain Management Plans, Labor support person(s), Immediate Larc, Circumcision preference, Signs and Symptoms of Preeclampsia, Infant Feeding No , Education and Family Medical Leave or Disability Forms ROS Const Reports system reviewed and no additional complaints, except as documented Card Reports system reviewed and no additional complaints, except as documented Resp Reports system reviewed and no additional complaints, except as documented GI Reports system reviewed and no additional complaints, except as documented and Reports nausea Reports system reviewed and no additional complaints, except as documented Musc Reports system reviewed and no additional complaints, except as documented Exam Const General: cooperative, healthy appearing, comfortable and anxious HENMT Head: normal to inspection Nose: external nose normal Face and sinus: normal facial exam Neck Neck: normal visual inspection, full ROM and no lymphadenopathy Thyroid: thyroid normal Chest Chest palpation & inspection: normal inspection of the chest Resp Effort & Inspection: normal respiratory effort GI Inspection: normal to inspection Palpation: soft and other (gravid uterus) Other: vertex and appropriate size for gestational age Other: Cervical Exam: Extrem General: pedal edema Results POC Urinalysis 2 Dip (Clinic) Office Urine Glucose Negative ? Last Edit by Lianna Arenas on 06/14/24 15:19 Office Urine Protein Negative ? Last Edit by Lianna Arenas on 06/14/24 15:19 Coding Level of Care Code OB Routine Diagnoses History of molar Z87.59 Thrombocytopenia affecting O99.119; D69.6 H/O section Z98.891 Marijuana use, episodic F12.90 Supervision of high risk in second trimester O09.92 Trimester: second trimester 39 weeks gestation of Z3A.39 Weeks of gestation: 39 weeks ADD (attention deficit disorder) F98.8 Depression, unspecified depression type F32.A Depression Type: unspecified PTSD (post-traumatic stress disorder) F43.10 Asthma J45.909 Assessment and Plan Assessment and Plan (1) History of molar : Status: Acute Comment: check HCG 6 weeks PP (2) Thrombocytopenia affecting : Status: Acute Comment: 136. rpt 4 wk (3) H/O section: Status: Acute Comment: previous then breech twins. desires (4) Marijuana use, episodic: Status: Acute Comment: gummies has not used since 3 months prior to (5) Supervision of high-risk : Status: Acute Qualifiers: Trimester: second trimester Qualified Code(s): O09.92 - Supervision of high risk , unspecified, second trimester Comment: PRR, , ROLANDO 06/19/24, boy PC Primitivo, Miriam Cody Alaniz(twins), Candido (6) : Status: Acute Qualifiers: Weeks of gestation: 39 weeks Qualified Code(s): Z3A.39 - 39 weeks gestation of Comment: Neg GBS NIPT low risk, carrier declined afp declined nl anatomy. (7) ADD (attention deficit disorder): Status: Acute (8) Depression: Status: Acute Qualifiers: Depression Type: unspecified Qualified Code(s): F32.A - Depression, unspecified Comment: mom from lung cancer age 57 weaned off lexapro. Stable (9) PTSD (post-traumatic stress disorder): Status: Acute Comment: from c/s- twin delivery; mom from Lung CA in 2020 (10) Asthma: Status: Acute Comment: uses albuterol inhaler very infrequently Orders: Orders POC Urinalysis 2 Dip (Clinic) Today Plan admit IAL 5 cm dilated epi when desired UPDATE- I have seen the patient and performed any clinically relevant updates to the history and physical exam. Coco Parry MD
[2024-06-14 17:31] LABS: Syphilis Antibodies Non-reactive
[2024-06-14] MEDS: Lactated Ringers 1,000 ML 999 ML IV (17:37)
[2024-06-14] MEDS: fentaNYL-bupivacaine (epidural) 100 ML BAG EPIDURAL ×2 (18:41→23:17)
[2024-06-14] MEDS: Lactated Ringers 1,000 ML 50 ML IV (18:42)
[2024-06-14] MEDS: Lactated Ringers 1,000 ML 200 ML IV (23:34)
[2024-06-15] VITALS (36 sets, daily range): BP systolic 104–143; BP diastolic 55–85; PULSE 76–130; RESP 16; TEMP 36.6–37.2; O2SAT 96–99
[2024-06-15] MEDS: Oxytocin 10 UNITS/ML Vial IM (00:08)
[2024-06-15] MEDS: Oxytocin 15 Units/NS 250ml 15 UNITS/250 ML IV.SOLN 83 UNITS IV (00:09)
--- NOTE | 2024-06-15 00:29 | EX.PCM.OBVAG ---
Assessment & Plan (1) Vaginal after : COMMENT: SM boy ?luis carlos 40 (2) History of molar : COMMENT: check HCG 6 weeks PP (3) Thrombocytopenia affecting : COMMENT: 136. rpt 4 wk (4) Marijuana use, episodic: COMMENT: gummies has not used since 3 months prior to (5) Supervision of high-risk : QUALIFIERS: Trimester: second trimester Qualified Code(s): O09.92 - Supervision of high risk , unspecified, second trimester COMMENT: PRR, , ROLANDO 06/19/24, boy PC Primitivo, Miriam Cody Alaniz(twins), Candido (6) : QUALIFIERS: Weeks of gestation: 39 weeks Qualified Code(s): Z3A.39 - 39 weeks gestation of COMMENT: Neg GBS NIPT low risk, carrier declined afp declined nl anatomy. (7) ADD (attention deficit disorder): (8) PTSD (post-traumatic stress disorder): COMMENT: from c/s- twin delivery; mom from Lung CA in 2020 (9) Depression: QUALIFIERS: Depression Type: unspecified Qualified Code(s): F32.A - Depression, unspecified COMMENT: mom from lung cancer age 57 weaned off lexapro. Stable (10) H/O section: COMMENT: previous then breech twins. desires (11) Asthma: COMMENT: uses albuterol inhaler very infrequently Maternal Data Information ROLANDO Calculator Estimated Delivery Date Method Current WG Current Estimate 06/19/24 LMP (Certain) 39w 3d Other Estimates 06/18/24 Ultrasound #1 39w 4d Vaginal Delivery Maternal Presentation Maternal Presentation: see assessment and plan Vaginal Delivery Information Procedure Performed: Surgeon/Practitioner: Coco Parry Date of Procedure: 06/15/24 Pre-Procedure Diagnosis: see assessment and plan Post-Procedure Diagnosis: same Type of anesthesia: Epidural Estimated Blood Loss: 200 Findings Description of procedure: Patient began pushing and delivered the head in the DELMY presentation. The head was delivered atraumatically . The anterior and posterior shoulders delivered without complication followed by the rest of the infant and the infant was placed on the maternal abdomen. Delayed cord clamping was employed for approximately 60 seconds. Cord was clamped and cut and gentle traction was applied to the cord and the placenta delivered spontaneously immediately following it was noted to be intact with three-vessel cord. The perineum and vagina were inspected and was noted to have a first -degree laceration that was repaired in the usual fashion with 3-0 vicryl rapide . EBL was 200. Patient and infant tolerated delivery well. Presentation: Vertex Placental Delivery Description: Spontaneous Specimen collected: Yes Description of specimen(s) removed: placenta Relief Charge Nurse industrial machine operator: No Post Vaginal Deli Medications given after delivery: Other (pitocin) Complication Complications: No Multi Select Codes Urinary/Genital Urinary/Genital CPT Codes: 84078 delivery [facility]
--- NOTE | 2024-06-15 00:30 | DCINST_ITS ---
Discharge Instructions Diet Discharge Diet: No restrictions DC O2, CPAP, BIPAP needs Home O2 Discharge instructions: No Dressing / Incision Discharge Activity: Return to Normal Activity, May Not Drive (while taking narcotic pain medications.) and May Shower May resume sexual activity in: 4-6 weeks Dressing / Incision Call your doctor if your incision/area has: Continuous Slow Oozing, Sudden Increased Bleeding, Increased Pain/ Swelling, Increased Redness and Foul Smelling Discharge Follow Up Care Please Follow Up With: Coco Parry MD When: Call [phone] to make an appointment with your doctor in 6 weeks. If you had elevated blood pressure or 4th degree laceration, you will need to be seen in 2 weeks. Test Results: Test results from this visit will be discussed in further detail at your follow- up appointment, if applicable. Discharge Plan Admission Admit Date/Time: 06/14/24 15:48 Attending Provider: Coco Parry Primary Care Provider: Andressa Mendoza Discharge Orders/Prescriptions Prescriptions: No Action PNV [id number] 400 mcg-35 mg- 25 mg-5 mg tablet,chewable 2 tab PO DAILY ferrous sulfate [Feosol] 325 mg (65 mg iron) tablet 325 mg PO DAILY Referrals / Follow Up: Andressa Mendoza MD [Primary Care Provider] - Disposition Disposition (needs filled in before D/C Order can be placed): Home, Self Care
[2024-06-16 01:51] VITALS: BP 121/82; PULSE 73
[2024-06-16 02:04] VITALS: BP 121/82; PULSE 73; RESP 16; TEMP 36.7; O2SAT 99
--- NOTE | 2024-06-16 08:20 | PCM.PN.CNM ---
Subjective Subjective Patient doing well without complaints. Tolerating PO. Ambulating and voiding without difficulty. Feeding well. Denies chest pain, shortness of breath, calf pain/swelling, fevers, chills, lightheadedness. Objective Data Objective Data Vital Signs: Vital Signs Temp Pulse Resp BP Pulse Ox O2 Del Method 98.1 F 73 16 121/82 H 99 Room Air 06/16/24 02:04 06/16/24 02:04 06/16/24 02:04 06/16/24 02:04 06/16/24 02:04 06/16/24 02:04 Oxygen Delivery Method Room Air Weight: 194 lb 8 oz Body Mass Index (BMI) 33.3 Intake & Output: Intake and Output for Last 24 Hours 06/14/24 06/15/24 06/16/24 23:59 23:59 23:59 Intake Total 1928.33 / 1928.33 356.67 / 356.67 Output Total 700 / 700 1550 / 1550 Balance 1228.33 / 1228.33 -1193.33 / -1193.33 Lab / Micro Data 06/14/24 16:30 Physical Exam Const alert and oriented x3 Neck full ROM Lymph Lymphatic: no lymphadenopathy noted Chest inspection of chest normal and inspection of breasts normal Resp normal respiratory effort and normal air movement Cardio regular rate and regular rhythm GI normal to inspection, nondistended, normoactive bowel sounds Uterus Palpation: uterus fundus firm (normal lochia. no clots) Extremity normal to inspection, full ROM, no calf tenderness and no pedal edema Skin no rashes or lesions noted Psych mental status grossly normal Assessment & Plan (1) Vaginal after : COMMENT: SM boy ?luis carlos 40 (2) Thrombocytopenia affecting : COMMENT: 136. rpt 4 wk (3) Depression: QUALIFIERS: Depression Type: unspecified Qualified Code(s): F32.A - Depression, unspecified COMMENT: mom from lung cancer age 57 weaned off lexapro. Stable PLAN: Plan s/p PPD # 1 1. routine post delivery care 2. breast feeding- support given 3. rh positive 4. rubella immune 5. plan d/c home today
[2024-06-16 08:29] VITALS: BP 118/75; PULSE 82
[2024-06-16 08:42] VITALS: BP 118/75; PULSE 82; RESP 18; TEMP 36.4; O2SAT 97
--- NOTE | 2024-06-16 10:55 | CASEMGMT ---
Social Work Assessment Labor and Delivery Unit Patient Address: [address] [place] [address] [place] [address] Phone number: [phone] Date of Referral: 06/15/2024 Time of Referral: 07:12 Referred By: Coco Parry Date of Intervention: 06/16/24 Time of Intervention: 10:56 Reason for Referral: Mental Health History obtained from: Medical records, mother of baby (MOB) and father of baby (FOB).? Household composition: JAN OLSEN (Candido) and their 3 daughters Primitivo, age 6, twins Faisal and Nicanor, age 4 and son Osbaldo, born 06/15/24. Patient's parent/guardian status: MOB and FOB have been together for 13 years and for 8. ??Both are actively involved and will be providing care for baby. MOB denied any concerns with domestic violence and described a positive and supportive relationship with the FOB. Medical History: ?: 5, Para now 3. PRETTY had a molar on 05/26/21 and had a spontaneous miscarriage at 8 weeks on 01/25/23. PRETTY received PNC through [facility] beginning at 8 weeks and 1 day and visits were observed to be regular.? Apgars: 9 and 9. Weight: 7lbs, 12 oz. Cloth Sponger: Dr. Bennett. Educational Status: MOB and FOB denied any issues or concerns with reading or writing. MOB is a high school graduate and has had some college. FOB earned his Associate?s Degree. Financial Status: MOB and FOB reported their income is sufficient to meet the needs of their family at this time. MOB is currently a [id number] mom (SAHM) and the FOB is currently employed in Sales. Supplies: MOB and FOB reported they have all the supplies they need for baby at this time including but not limited to: Car seat, bassinet, pack-n-play, crib, diapers, bottles and clothing. Breast Pump is in the process of being delivered. Childcare/Caregiver(s):? MOB reported she will be the primary caregiver as a SAHM and the FOB will help when not working. Transportation:? MOB and FOB reported they are both licensed drivers and have a reliable vehicle to take baby to and from all medical appointments. No transportation issues identified. Programs/Agencies Involved: MOB and FOB denied any current programs or agencies involved at this time. [facility] used to be involved with the twins. Children Services/Legal Issues:? Denied. Behavioral Health Issues: ??Mental Health History: PRETTY has a history of ADD, Anxiety, Depression, PTSD, and PPD. MOB reported she was on medication prior to the however did not take medications while and MOB reported she is currently doing fine and will reach out to her provider if she ever feels like she needs to start back up. MOB reported most of her grief is due to her mother being .? MOB reported she was her biggest support and MOB misses her especially during these milestone experiences such as births.? MOB reported symptoms are managed at this time. ?Substance Use History: PRETTY has tried marijuana however reported the last time she smoked was months before trying to conceive.? MOB stated she used to drink on occasion but never drank during . MOB reported the FOB doesn?t drink and she doesn?t suspect she will continue drinking on occasion. ?Family History: MOB reported her uncle was an alcoholic and the FOB?s uncle is an alcoholic.?? Drug Screens: None obtained at the time of this admission. Family/Social Stressors: ?MOB and FOB denied any current family or social stressors. Support Systems: Ample.? PRETTY identified her biggest supports as the FOB and the FOB?s mother, sister and grandma. Depression/Shaken Baby/Safe Sleeping: jet worker provided verbal and written education on PPD, Safe Sleeping and Shaken Baby.? Parents verbalized an understanding. ??? ASSESSMENT:? MOB and FOB provided consent to social work visit. Upon arrival, MOB was in a chair and the FOB was holding and working with the nurse on final discharge tasks. Both were trying to get out as soon as possible due to the bad winter weather and poor road conditions. Both were very cooperative and manager social services observed positive interaction between the MOB and FOB as well as positive interaction towards .? At the end of the assessment, manager social services requested to speak with the MOB alone which both were agreeable to. MOB denied any previous or current DV and described the FOB as her best friend.? MOB denied any drug or alcohol abuse or unmanaged mental health concerns either with herself or with the FOB. Safe Plan of Care for infant related to substance use: N/A; not needed. ? PLAN:? Baby to be discharged home when ready.? jet worker also provided written information on depression, depression resources and Help Me Grow as additional resources offered by manager social services which MOB and FOB accepted. No other services requested or indicated. Rylie Monique, SUPERVISOR [employer], COMPUTER TYPESETTER
== END 2024-06-16 10:55 | disposition home or self-care (01) | DRG 807 ==
PROVIDERS: Registered Nurse; Admitting Provider Obstetrics & Gynecology; PCP Family Medicine; Referring Provider Obstetrics & Gynecology; Visit Provider Obstetrics & Gynecology
DX: O99.12 Other diseases of the blood and blood-forming organs and certain disorders involving the immune mechanism complicating childbirth (principal); Z37.0 Single live birth; D69.6 Thrombocytopenia, unspecified; F32.A Depression, unspecified; J45.909 Unspecified asthma, uncomplicated; Z3A.39 39 weeks gestation of pregnancy; F43.10 Post-traumatic stress disorder, unspecified; O99.344 Other mental disorders complicating childbirth; F98.8 Other specified behavioral and emotional disorders with onset usually occurring in childhood and adolescence; O99.52 Diseases of the respiratory system complicating childbirth; Z87.59 Personal history of other complications of pregnancy, childbirth and the puerperium; O34.219 Maternal care for unspecified type scar from previous cesarean delivery; O70.0 First degree perineal laceration during delivery
CPT/HCPCS: 59025; 59050; 85025; 86780; 86850; 86900; 86901

== ENCOUNTER → 2024-08-02 | Outpatient (CLI) | payer OTHER, SELFPAY ==
[2024-08-02 13:21] LABS: hCG Titer Quant., Serum < 1 mIU/mL (<9 non-preg)
== END | disposition home or self-care (01) ==
LOC: BWCLAB 10:19
PROVIDERS: PCP Family Medicine; Referring Provider Obstetrics & Gynecology; Visit Provider Obstetrics & Gynecology
DX: Z87.59 Personal history of other complications of pregnancy, childbirth and the puerperium (principal)
CPT/HCPCS: 36415; 84702